=== PATIENT | female | born 1965 | race Caucasian/White ===

== ENCOUNTER 2017-09-10 09:47 | Outpatient (CLI) | payer OTHER, SELFPAY ==
[2017-09-10] VITALS (11 sets, daily range): BP systolic 115–141; BP diastolic 65–87; PULSE 61–70; RESP 16–18; TEMP 36.8; O2SAT 96–100
--- NOTE | 2017-09-10 09:49 | DI.RAD.S_ITS ---
PROCEDURE: PAIN C/T INTERLAMINAR INJECT INDICATIONS: 51 year-old female with cervical stenosis and radiculopathy. FINDINGS: Fluoroscopic spot filming was performed to verify placement of spinal needles at the posterior C6-C7 level(s), as labeled on the films. Appropriate location(s) of the needle tip(s) was confirmed by injection of iodinated contrast. IMPRESSION: Fluoroscopic guidance for C6-C7 epidural steroid injection. Dictated by: Conor Woodard M.D. on 09/10/2017 at 12:48 Approved by: Conor Woodard M.D. on 09/10/2017 at 12:49
--- NOTE | 2017-09-10 09:57 | PM.PROC.1 ---
Procedures Date/Time Date of procedure: 09/10/17 Time of procedure: 09:57 General Procedure description: PREOP DIAGNOSIS 1. CERVICAL STENOSIS, 2. CERVICAL HNP WITH UPPER EXTREMITY RADICULAR FEATURES, POST OP DIAGNOSIS 1. CERVICAL STENOSIS, 2. CERVICAL HNP WITH UPPER EXTREMITY RADICULAR FEATURES, PROCEDURES 1. FLUORSCOPICALLY GUIDED CONTRAST CONTROLLED INTERLAMINAR EPIDURAL STEROID INJECTION - C6/7 TL NEIL PHYSICIAN: DO BEVERLEY Golden is referred by Dr. Perdomo for treatment of Cervical HNP with Upper Extremity Paresthesias. FINDINGS Cervical Stenosis due to disc deterioration and nerve root irritation and nerve root irritation DESCRIPTION OF PROCEDURE Fluoroscopically guided, contrast-controlled C6/7 translaminar epidural steroid injection with conscious sedation. Following denial of allergy and review of potential side effects and complications, including, but not necessarily limited to, infection, allergic reaction, local tissue breakdown, temporary as well as permanent nerve injury, stroke, paralysis, and possible , the patient indicated that patient understood and agreed to proceed. An informed consent document was signed by the patient, witnessed by a nurse, and placed in the patient's chart. Additionally, other treatment options including modalities, medications, and physical therapy were reviewed with the patient. Per the patient request, IV conscious sedation was administered via 5mg of Versed and 50mcg of Fentanyl to patient comfort. The patient's vital signs were monitored throughout the procedure by both the nurse and the physician without significant fluctuation. The patient remained conversant throughout the procedure. In the prone position, following sterile prep and drape of the cervical region, the C6/7 translaminar space was identified fluoroscopically. The skin was anesthetized via a 25-gauge 1.5-inch needle with 1% lidocaine solution. At this point, a 25-gauge, 2.5-inch short bevel spinal needle was atraumatically introduced and advanced under fluoroscopic guidance into epidural space at the C6/7 translaminar space. Depth was confirmed on lateral view. Radiological data, including multiple fluoroscopic views of the cervical spine, reveal a spinal needle at the C6/7 translaminar space. Lateral views then show placement of the needle in the epidural space. Subsequent views show contrast material flowing superiorly and inferiorly in the epidural space. DSA fluoroscopy with live contrast injection, once again, confirmed no vascular or intrathecal uptake. At this point, using loss of resistance technique with saline and air, the epidural space was entered. Following negative aspiration, injection of approximately 1.5 cc of Isovue-200 with live fluoroscopy in the AP view confirmed epidural flow in the epidural space without vascular or intrathecal uptake observed. Subsequently, a test dose of 1 cc of 1% lidocaine solution was injected and patient was observed for two minutes without signs or symptoms of complications, including abdominal pain, shortness of breath, bilateral upper or lower extremity weakness, nausea and vomiting, prior to steroid injection. At this point, 3 cc or 30 mg of dexamethasone was then injected without incident. The patient was then transferred to the recovery area where they were observed for an appropriate period of time after the injection. The patient reported a VAS score of 6 prior to the procedure and a post-procedure VAS of 0. Total Fluoroscopy Time: 37.0 seconds Total Conscious Time: 24min POST OP INSTRUCTIONS The patient was provided a Pain Log to continue to record their response to the target-specific procedure prior to follow-up visit with the referring provider. Additionally, specific post-injection care instructions and a contact number to our office were provided if concerns arise regarding possible complications associated with the procedure are suspected. Hebert Foley, DO Complications: none
[2017-09-10] MEDS: MIDAZOLAM 5 MG/5 ML VIAL IV (11:02)
[2017-09-10] MEDS: fentaNYL 100 MCG/2 ML INJ 50 MCG IV (11:10)
[2017-09-10] MEDS: LIDOCAINE 1% 20 ML INJ 5 ML INJ (11:12)
[2017-09-10] MEDS: DEXAMETHASONE 10 MG/ML VIAL 30 MG INJ (11:12)
[2017-09-10] MEDS: IOPAMIDOL 15 ML VIAL 3 ML INJ (11:12)
== END 2017-09-10 12:29 | disposition home or self-care (01) ==
PROVIDERS: PCP Family Medicine; Visit Provider Physical Medicine & Rehabilitation
DX: M50.123 Cervical disc disorder at C6-C7 level with radiculopathy (principal); M48.02 Spinal stenosis, cervical region
CPT/HCPCS: 62321; 99152; J1100; J2250; J3010

== ENCOUNTER → 2017-11-26 11:17 | Outpatient (CLI) | payer OTHER, SELFPAY | PROVIDERS: PCP Internal Medicine; Visit Provider Internal Medicine | DX: R76.8 Other specified abnormal immunological findings in serum (principal) | CPT/HCPCS: 36415; 83516 ==

== ENCOUNTER → 2018-01-22 11:38 | Outpatient (CLI) | payer OTHER, SELFPAY ==
--- NOTE | 2018-01-22 | DI.MRI.S_ITS ---
PROCEDURE: MR LUMBAR SPINE WO CON INDICATIONS: URGE OF INCONTINENCE OF URINE/FULL INCONTINENCE TECHNIQUE: Noncontrast sagittal T1 spin echo and T2 fast echo, coronal T2, sagittal STIR, axial T1 and T2 fast spin echo through the lumbar spine. COMPARISON: [facility], CT, ABDOMEN WITH CONTRAST, 04/15/2017, 15:49. [facility], CR, L-SPINE 2-3 VIEWS, 03/03/2007, 9:57. FINDINGS: Image quality: Excellent. Alignment and Curvature: 5 lumbar type vertebral bodies are present by plain film. There is a transitional element at S1. Numbering system is as denoted on the montage panel. There is mild rightward curvature of the upper lumbar spine. Mild grade 1 retrolisthesis of L5 on S1 is present. Bone Marrow: Marrow is of normal overall signal. No acute vertebral body compression fractures. There is mild reactive signal within the endplates adjacent to the L3-L4 and L5-S1 intervertebral disc. Atypical hemangiomata at T11 and T12 are present. Spinal Cord: Conus medullaris terminates at the L1-L2 disc space level. Visualized cord demonstrates normal signal and size. Paraspinous Soft Tissues: No paravertebral masses. L1-L2: Mild facet hypertrophy. No significant canal, nor foraminal stenosis. L2-L3: Mild disc height loss and desiccation. Mild bilateral facet hypertrophy. Mild canal stenosis. No foraminal stenosis. L3-L4: Mild disc height loss and desiccation. Mild diffuse disc bulge. Mild bilateral facet hypertrophy. Mild epidural lipomatosis. Mild canal stenosis. No foraminal stenosis. L4-L5: Mild disc at loss and desiccation. Minimal diffuse disc bulge. Moderate bilateral facet and ligamentum flavum hypertrophy. Mild epidural lipomatosis. Mild canal stenosis. No foraminal stenosis. L5-S1: Moderate disc height loss and desiccation. Mild diffuse disc bulge. Mild bilateral facet and ligamentum flavum hypertrophy. Mild canal stenosis. Mild right greater than left foraminal stenosis. IMPRESSION: 1. Atypical numbering system as described above and as denoted on the montage panel. There is transitional anatomy at the lumbosacral junction. 2. Multilevel degenerative disc and facet disease, as well as ligamentum flavum hypertrophy and epidural lipomatosis, causing mild multilevel canal and foraminal stenoses as described above. Dictated by: Delmis Shukla M.D. on 01/22/2018 at 13:28 Approved by: Delmis Shukla M.D. on 01/22/2018 at 13:34
== END ==
PROVIDERS: Family Provider Physical Medicine & Rehabilitation; PCP Student in an Organized Health Care Education/Training Program; Visit Provider Psychiatry & Neurology Vascular Neurology
DX: N39.41 Urge incontinence (principal); M51.36 Other intervertebral disc degeneration, lumbar region; M51.37 Other intervertebral disc degeneration, lumbosacral region; E88.2 Lipomatosis, not elsewhere classified; M48.061 Spinal stenosis, lumbar region without neurogenic claudication; M48.07 Spinal stenosis, lumbosacral region
CPT/HCPCS: 72148

== ENCOUNTER → 2018-02-27 12:10 | Outpatient (CLI) | payer OTHER, SELFPAY ==
--- NOTE | 2018-02-27 12:10 | DI.MRI.S_ITS ---
PROCEDURE: MR CERVICAL SPINE WO CON INDICATIONS: Cervical spine pain. Headaches. Incontinence. Numbness to fingers and left foot TECHNIQUE: Noncontrast sagittal T1 spin echo and T2 fast spin echo, sagittal STIR, foraminal oblique sagittal T2 fast spin echo, and axial gradient echo or T2 fast spin echo through the cervical spine. COMPARISON: [facility], MR, C-SPINE WITHOUT CONTRAST, 07/28/2014, 14:15. [facility], MR, C-SPINE WITHOUT CONTRAST, 07/26/2016, 16:24. FINDINGS: Image quality: Diagnostic, with note made of motion artifact. Alignment and Curvature: There is straightening of the normal cervical lordosis. Bone Marrow: Marrow demonstrates normal overall signal. Spinal Cord: Visualized spinal cord has normal size and signal. No cerebellar tonsillar herniation. Paraspinous Soft Tissues: No paravertebral masses. Prevertebral soft tissues are normal in thickness. C2-C3: No significant abnormality is seen. C3-C4: Mild loss of disc height is seen. Loss of disc signal is seen. A mild degree of generalized disc osteophyte complex is seen. Mild to moderate facet hypertrophy is seen. There is moderate to severe left-sided and mild to moderate right-sided neural foraminal narrowing seen. Mild central canal narrowing is seen. The degree of left-sided neural foraminal narrowing appears slightly progressed compared to the prior. C4-C5: Mild loss of disc height is seen. Loss of disc signal is seen. Moderate disc osteophyte complex is seen, which is eccentric to the left, as on series 5 image 20. Mild to moderate facet hypertrophy is seen. There is moderate right-sided and moderate to severe left-sided neural foraminal narrowing seen. Moderate central canal narrowing is seen. The degree of central canal narrowing appears progressed compared to the prior. C5-C6: Moderate loss of disc height is seen. Loss of disc signal is seen. Moderate to prominent disc osteophyte complex is seen. Uncovertebral joint hypertrophy is seen at this level. Mild to moderate facet hypertrophy is seen. There is moderate to severe bilateral neural foraminal narrowing seen. Moderate to severe central canal narrowing is seen, with mass effect upon the ventral spinal cord, as on series 5 image 24. When comparison is made with the prior examination, these findings are similar. C6-C7: Moderate to severe loss of disc height and disc signal are seen. Moderate disc osteophyte complex is seen, which is eccentric to the left. There is focal left lateral recess disc osteophyte protrusion seen. There is moderate to severe left-sided and at least moderate right-sided neural foraminal narrowing seen. At least moderate central canal narrowing is seen at this level, with mild mass effect upon the ventral spinal cord. These imaging findings have progressed compared to the prior study. C7-T1: The disc height is relatively well-preserved. A mild degree of generalized disc osteophyte complex is seen. There is moderate left-sided and mild right-sided neural foraminal narrowing seen. No significant central canal narrowing is seen. No significant change from the prior. IMPRESSION: Multiple levels of cervical spine degenerative change are seen, which are overall mildly progressed compared to 2017. Dictated by: Norberto Lakhani M.D. on 02/27/2018 at 12:31 Approved by: Norberto Lakhani M.D. on 02/27/2018 at 12:41
== END ==
PROVIDERS: Family Provider Physical Medicine & Rehabilitation; PCP Student in an Organized Health Care Education/Training Program; Visit Provider Physical Medicine & Rehabilitation
DX: M47.812 Spondylosis without myelopathy or radiculopathy, cervical region (principal); M48.02 Spinal stenosis, cervical region; M54.2 Cervicalgia; R51 Headache; R32 Unspecified urinary incontinence; R20.0 Anesthesia of skin; G95.89 Other specified diseases of spinal cord
CPT/HCPCS: 72141

== ENCOUNTER 2018-04-14 08:00 | Outpatient (CLI) | payer OTHER, SELFPAY ==
[2018-04-14] VITALS (8 sets, daily range): BP systolic 105–133; BP diastolic 69–96; PULSE 72–79; RESP 16–21; TEMP 36.5; O2SAT 96–100
--- NOTE | 2018-04-14 08:02 | DI.RAD.S_ITS ---
PROCEDURE: PAIN C/T INTERLAMINAR INJECT INDICATIONS: SPINAL STENOSIS FINDINGS: Fluoroscopic spot filming was performed to verify placement of spinal needles at the C6-7 midline dorsal epidural level(s), as labeled on the films. Appropriate location(s) of the needle tip(s) was confirmed by injection of iodinated contrast. IMPRESSION: Successful interlaminar epidural needle tip localization for C6-7 epidural steroid injection. Dictated by: Renard Jesus M.D. on 04/14/2018 at 10:17 Approved by: Renard Jesus M.D. on 04/14/2018 at 10:17
[2018-04-14] MEDS: MIDAZOLAM 5 MG/5 ML VIAL IV (09:11)
[2018-04-14] MEDS: IOPAMIDOL 15 ML VIAL 3 ML INJ (09:19)
[2018-04-14] MEDS: DEXAMETHASONE 10 MG/ML VIAL 30 MG INJ (09:20)
[2018-04-14] MEDS: LIDOCAINE 1% 20 ML INJ 5 ML INJ (09:20)
--- NOTE | 2018-04-14 09:26 | CM.MNRNOTE ---
Pt tolerated procedure, awake through procedure, able to get off table with minimal assist. Transferred pt to pre procedure room via wheelchair to continued monitoring with Shavonne HARDEN.
--- NOTE | 2018-04-14 09:32 | PM.PROC.1 ---
Procedures Date/Time Date of procedure: 04/14/18 Time of procedure: 09:32 General Procedure description: PREOP DIAGNOSIS 1. CERVICAL STENOSIS, 2. CERVICAL HNP WITH UPPER EXTREMITY RADICULAR FEATURES, POST OP DIAGNOSIS 1. CERVICAL STENOSIS, 2. CERVICAL HNP WITH UPPER EXTREMITY RADICULAR FEATURES, PROCEDURES 1. FLUORSCOPICALLY GUIDED CONTRAST CONTROLLED INTERLAMINAR EPIDURAL STEROID INJECTION - C6/7 TL NEIL PHYSICIAN: Hebert Foley, DO INDICATIONS Raeann is referred by Dr. Bruner for treatment of Cervical Stenosis with Upper Extremity Paresthesias. FINDINGS Cervical Stenosis due to disc deterioration and nerve root irritation and nerve root irritation DESCRIPTION OF PROCEDURE Fluoroscopically guided, contrast-controlled C6/7 translaminar epidural steroid injection with conscious sedation. Following denial of allergy and review of potential side effects and complications, including, but not necessarily limited to, infection, allergic reaction, local tissue breakdown, temporary as well as permanent nerve injury, stroke, paralysis, and possible , the patient indicated that patient understood and agreed to proceed. An informed consent document was signed by the patient, witnessed by a nurse, and placed in the patient's chart. Additionally, other treatment options including modalities, medications, and physical therapy were reviewed with the patient. After review of previous anaesthesic history and IV conscious sedation the patient was deemed safe to proceed with todays procedure with IV conscious sedation as ASA class II designation. Safety time-out was performed to confirm patient ID, procedure to be performed and site of procedure. IV sedation was accomplished with a combination of 5mg of Versed administered by the RN after DO order, titrated to patient comfort during the course of the procedure while the patient remained responsive to all verbal commands. In the prone position, following sterile prep and drape of the cervical region, the C6/7 translaminar space was identified fluoroscopically. The skin was anesthetized via a 25-gauge 1.5-inch needle with 1% lidocaine solution. At this point, a 25-gauge, 2.5-inch short bevel spinal needle was atraumatically introduced and advanced under fluoroscopic guidance into epidural space at the C6/7 translaminar space. Depth was confirmed on lateral view. Radiological data, including multiple fluoroscopic views of the cervical spine, reveal a spinal needle at the C6/7 translaminar space. Lateral views then show placement of the needle in the epidural space. Subsequent views show contrast material flowing superiorly and inferiorly in the epidural space. DSA fluoroscopy with live contrast injection, once again, confirmed no vascular or intrathecal uptake. At this point, using loss of resistance technique with saline and air, the epidural space was entered. Following negative aspiration, injection of approximately 1.5 cc of Isovue-200 with live fluoroscopy in the AP view confirmed epidural flow in the epidural space without vascular or intrathecal uptake observed. Subsequently, a test dose of 1 cc of 1% lidocaine solution was injected and patient was observed for two minutes without signs or symptoms of complications, including abdominal pain, shortness of breath, bilateral upper or lower extremity weakness, nausea and vomiting, prior to steroid injection. At this point, 3 cc or 30 mg of dexamethasone was then injected without incident. The patient tolerated the procedure well without signs or symptoms of complications prior to being transferred to the recovery area for further monitoring, The patient was then transferred to the recovery area where they were observed for an appropriate period of time after the injection. The patient reported a VAS score of 6 prior to the procedure and a post-procedure VAS of 0. Total Fluoroscopy Time: 37.0 seconds Total Conscious Time: 24min POST OP INSTRUCTIONS The patient was provided a Pain Log to continue to record their response to the target-specific procedure prior to follow-up visit with the referring provider. Additionally, specific post-injection care instructions and a contact number to our office were provided if concerns arise regarding possible complications associated with the procedure are suspected. Hebert Foley DO Complications: none
--- NOTE | 2018-04-14 09:35 | PC.NURSE ---
ACCEPTED CARE OF PT IN POST PROC AREA. PT IN STABLE CONDITION
--- NOTE | 2018-04-15 12:46 | PC.NURSE ---
Follow up call made, mailbox full unable to leave message.
== END 2018-04-14 10:12 | disposition home or self-care (01) ==
LOC: RAD 08:02
PROVIDERS: PCP Student in an Organized Health Care Education/Training Program; Visit Provider Physical Medicine & Rehabilitation
DX: M50.123 Cervical disc disorder at C6-C7 level with radiculopathy (principal); M48.02 Spinal stenosis, cervical region
CPT/HCPCS: 62321; 99152; J1100; J2250

== ENCOUNTER → 2018-05-07 09:36 | Outpatient (CLI) | payer OTHER, SELFPAY ==
[2018-05-07 10:55] LABS: Add Manual Diff / Slide Review NO; Basophils Absolute Auto 100 /uL (0-100); Basophils Percent Auto 0.7 % (0-2); Eosinophils Absolute Auto 400 /uL (0-450); Eosinophils Percent Auto 4.9 % (2-4); Hematocrit 42.3 % (36-46); Hemoglobin 14.2 g/dL (12.0-16.0); Lymphocytes Absolute Auto 1200 /uL (1100-4500); Lymphocytes Percent Auto 15.5 % (25-40); Mean Corpuscular HGB Conc 33.6 % (30-36); Mean Corpuscular Hemoglobin 31.5 PG (26-34); Mean Corpuscular Volume 93.7 fL (80-100); Monocytes Absolute Auto 600 /uL (0-900); Monocytes Percent Auto 7.7 % (3-14); Neutrophils Absolute Auto 5400 /uL (1500-7000); Neutrophils Percent Auto 71.2 % (50-75); Platelet Count 262 X10^3/uL (150-400); Red Blood Cell Count 4.51 X10^6/uL (4.0-5.2); Red Cell Distribution Width 14.7 % (11.6-14.8); White Blood Cell Count 7.6 X10^3/uL (4.5-11.0)
== END ==
PROVIDERS: PCP Student in an Organized Health Care Education/Training Program; Visit Provider Orthopaedic Surgery
DX: Z01.818 Encounter for other preprocedural examination (principal); M48.02 Spinal stenosis, cervical region; M50.30 Other cervical disc degeneration, unspecified cervical region
CPT/HCPCS: 36415; 85025; 93005

== ENCOUNTER 2018-05-20 08:32 | Observation (INO) | payer OTHER, SELFPAY ==
[2018-05-13 09:21] VITALS: BMI 30.9
[2018-05-19] VITALS (17 sets, daily range): BP systolic 109–147; BP diastolic 59–90; PULSE 60–91; RESP 12–22; TEMP 36.3–37.1; O2SAT 90–99; BMI 30.9
[2018-05-19] MEDS: LACTATED RINGERS 1,000 ML 42 ML IV (07:11)
--- NOTE | 2018-05-19 07:23 | PM.PREOP ---
Pre-operative Note Interval Note History & Physical reviewed/Exam performed by Physician: Yes Changes to H&P: No
[2018-05-19] MEDS: CEFAZOLIN 2 GM/100 ML FROZ.PIGGY IV ×3 (07:39→23:56)
--- NOTE | 2018-05-19 08:18 | SUR.OPER ---
Supine, head on gel donut. Arms padded with gel pads, tucked at sides, towel roll under shoulders. Safety belt at thigh. Legs uncrossed. Pillow under knees
[2018-05-19] MEDS: THROMBIN (BOVINE) 5,000 UNIT VIAL 5000 UNIT TOP (08:38)
[2018-05-19] MEDS: SODIUM CHLORIDE 0.9% 1,000 ML, GENTAMICIN 80 MG IRR (08:39)
[2018-05-19] MEDS: BUPIVACAINE 0.25% W/ EPI VIAL 50 ML INJ (09:01)
--- NOTE | 2018-05-19 09:11 | PM.OP.1 ---
Operative Date/Time/Diagnoses Date of procedure: 05/19/18 Time of procedure: 09:11 Pre-op diagnosis: Cervical disc herniation with radiculopathy Post-op diagnosis: same Procedure & Clinicians Procedure: C5-6 and C6-7 anterior cervical diskectomy and artificial disc replacement Use of microscope Same procedure as scheduled: Yes Indications: [age] year old female with intractable pain from disc herniation. They had failed conservative management and requested operative intervention. Risks and benefits of surgery were discussed and appropriate consents were obtained. Surgeon: Nagi Solis Cafeteria Supervisor: Zahra Bradford Anesthesia Type: General Operative Notes Findings: None Closure Type: primary Specimen(s): none sent Prosthetic devices, grafts, tissues, transplants, or devices: Monse Mobi-C Estimated Blood Loss (mL): 5 Procedure in detail: Patient was brought to the operating room and intubated on the table. A time-out was performed. Preoperative antibiotics were given. The neck was prepped and draped in the standard sterile fashion. Using a skin fold, we made a 3 cm oblique incision on the left side. We used Bovie to go through the platysma and then did a standard anterolateral blunt dissection down to the precervical fascia. Fascia was nicked and elevated up. A marker was placed and x-ray was taken for localization. We then subperiosteally elevated up the longus colli muscles. Self-retaining retractors were placed. [place] pins were placed under x-ray guidance to be parallel to the endplates. We then brought in the microscope. A scalpel used to perform an annulotomy. We then used a combination of pituitaries and curettes and Kerrison to perform a complete anterior diskectomy at C6-7. We took down the PLL and used Kerrison to remove any posterior disc material and osteophytes. At the end we could from the nerve hook cephalad caudally and out the foramen and everything was opened. We distracted open with the parallel receipt and report clerk. We then used the horseshoes for sizing. We then used the trials. We then inserted a 13 mm x 17 mm x 5 mm size Mobi-C artificial disc replacement under fluoroscopic guidance for positioning. The traction was released and x-ray was checked again. The self-retaining retractors and [place] pins were removed and x-rays taken. We then moved up to the C5-6 disc space and placed a [place] pin. Again a complete diskectomy was performed including taking down the PLL. Posterior osteophytes and disc material were removed. In the end a nerve hook could be run cephalad, caudally, and out the foramen at everything and then opened. We trialed and then placed a 13 mm x 15 mm x 5 mm size Mobi-C artificial disc replacement. This was checked under x-ray and then the [place] pins were compressed. We removed our retractors and took our final x-rays. The wound was irrigated. There was no bleeding. The carotid was beating nicely. The platysma was closed. The superficial was closed. The skin was closed. A sterile dressing was placed. They were then extubated and brought to recovery room with no complications. Complications: none Condition: stable Disposition: PACU Plan for aftercare: Overnight admission. Probable discharge home tomorrow.
[2018-05-19] MEDS: HYDROMORPHONE 2 MG INJ 0.5 MG IV ×8 (09:22→10:11)
--- NOTE | 2018-05-19 09:30 | DI.RAD.S_ITS ---
PROCEDURE: XR CERVICAL SPINE 2V OR 3V INDICATIONS: C5-6, C6-7 ACDF TECHNIQUE: 2 view(s) of the cervical spine were acquired. COMPARISON: None. FINDINGS: 2 spot fluoroscopic intraoperative views demonstrating C5-C6 and C6-7 prosthetic disc placement. There is expected intraoperative alignment. Hardware appears intact. Mild C4-C5 disc degeneration. Dictated by: Mario Davenport M.D. on 05/19/2018 at 10:45 Approved by: Mario Davenport M.D. on 05/19/2018 at 10:59
[2018-05-19] MEDS: fentaNYL 100 MCG/2 ML INJ IV ×2 (09:45→09:50)
--- NOTE | 2018-05-19 10:49 | SUR.PHASEI ---
1045, addendum to PACU note; pt. in process on transferring to the acute care floor, on the elevator noted 'some' blood that had absorbed onto the right side of the neck dressing. Marked the area with a sharpy and reported this to the RN Keri (orienting) receiving this pt. Reese HARDEN and Keri stated they were fine at this time of 'handoff', and I left the floor.
--- NOTE | 2018-05-19 12:21 | PC.NURSE ---
Addendum entered and electronically signed by Keri Cisneros R.N. 05/19/18 13:14: Original Note: Addendum entered and electronically signed by Keri Cisneros R.N. 05/19/18 12:26: 1100- Admission complete; slight drainage present on neck dressing, soft neck collar in place. Pt states she has 8/10 pain, will wait for IV meds from downstairs to work. 2L O2 w/ sats in high 90's. LR hung and running @ 125 ml/hr. 1220- Breakthru pain; medicated w/ Melvin. Swalowing pussing & V8 juice okay at this time. Original Note: 1035- Pt arrived to unit from PACU. Post op C5-C7 anterior dissection & artificial disc replacement.
[2018-05-19] MEDS: OXYCODONE/ACETAMINOPHEN 5/325 TABLET 1 TAB PO (12:23)
[2018-05-19] MEDS: LACTATED RINGERS 1,000 ML 125 ML IV (12:24)
[2018-05-19] MEDS: HYDROMORPHONE 0.5 MG INJ IV (16:02)
--- NOTE | 2018-05-19 16:15 | PT.IIE ---
Current Diagnoses Spinal stenosis, cervical region (05/19/18) Other cervical disc degeneration, unspecified cervical region (05/19/18) Surgery Performed Operation Date: 05/19/18 07:45 Actual Procedures p C56 & C67 Anterior Discectomy & Artificial disc replacement - Nagi Solis MD Surgical History (Last Reviewed 05/14/18 @ 10:10 by Hebert Foley DO) Hx of cholecystectomy (Acute ~1998) Normal colonoscopy (Resolved 2014) Plantar fasciitis (Resolved 2001) Plantar fasciitis (Resolved 2004) Status post cholecystectomy (Resolved 1998) Status post loop electrosurgical excision procedure (LEEP) of cervix (Resolved 1995) Status post tubal ligation (Resolved 1997) Medical History (Last Reviewed 05/14/18 @ 10:10 by Hebert Foley DO) Cervical dysplasia (Acute) Anemia (Chronic 1999) Anxiety (Chronic 1999) Chronic headaches (Chronic) Depression (Chronic 1989) Foot pain (Chronic 2000) Heavy menstrual period (Chronic) History of use of contraceptive intrauterine device (IUD) (Chronic 07/2010) Hypothyroidism (Chronic ~1989) Migraine (Chronic) Painful menstrual periods (Chronic 1989) Restless legs syndrome (RLS) (Chronic 2007) Shoulder pain (Chronic 2013) Abnormal Pap smear of cervix (Resolved 1994) Chicken pox (Resolved 1977) Chlamydia (Resolved 1983) Diverticular disease (Resolved 2014) Fractures (Resolved 1981) Hemorrhoids (Resolved 1989) Physical Therapy Inpatient Evaluation/Re-Eval M1 PT/OT-IP Prior Functional Status Start: 05/19/18 16:41 Freq: NEEDED Status: Active Protocol: Document 05/19/18 16:15 AB (Rec: 05/19/18 16:55 AB [id number]) Medical Review Prior Functional Status Medical History Reviewed Yes Communication able to make needs known Mobility and Gait pt stated that she is independent with all mobilities and ambulation without AD Social History Household Members spouse Living Arrangements House Number of Floors (Floors) One Floor Number of Stairs To Enter/Railing? 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 Additional Social History Comment works at the [employer] for [employer] spouse stated that he can get a FWW for pt to use M2 PT-IP Current Condition Start: 05/19/18 16:41 Freq: NEEDED Status: Active Protocol: Document 05/19/18 16:15 AB (Rec: 05/19/18 16:55 AB [id number]) Physical Therapy Current Condition Current Condition Evaluation Date 05/19/18 Treatment Diagnosis s/p C5-6, C6-7 discectomy/ replacement; difficulty in walking Onset Date 05/19/18 Precautions Cervical Spine Precautions Soft Collar for Comfort No Heavy Lifting Log Roll M3 PT-IP Subjective Start: 05/19/18 16:41 Freq: NEEDED Status: Active Protocol: Document 05/19/18 16:15 AB (Rec: 05/19/18 16:55 AB [id number]) Subjective Physical Therapy Visit Type Type Initial Evaluation Visit Start Time 16:15 Visit Stop Time 16:40 Total Visit Minutes 25 Number of VENDING STAND SUPERVISOR Visits 0 Physical Therapy Visit Comments Patient Comments c/o a lot of pain and getting a migraine but agreed to try to get up Therapy Pain Assessment Pain When Pain Assessed At Rest Pain Present Pain Present Pain Reported Location Anterior neck Intensity 9 Scale Used Numeric (1 - 10) Pain Management Techniques Re-positioning Timing of Activity with Medications M4 PT-IP Mobility and Gait Start: 05/19/18 16:41 Freq: NEEDED Status: Active Protocol: Document 05/19/18 16:15 AB (Rec: 05/19/18 16:55 AB [id number]) PT-Bed Mobility Assessment Rolling Type of Rolling Log Rolling Level of Assist Contact Guard Assistance Supine to Sit Supine to Sit Minimal Assistance Sit to Supine Sit to Supine Contact Guard Assistance PT-Transfer Assessment Sit to and From Stand Sit to and from Stand Minimal Assistance 1 Person Assistance Use of Upper Extremities Equipment Transfer Assistive Device Gait Belt Front Wheeled Walker Orthotic/Prosthetic Devices or Brace: No Comments Mobility Comments pt c/o increase pain and getting a migraine. seems lethargic but able to respond to questions and follow directions. pt completed supine to sit min A and cues. pt was able to sit on EOB SBA . c/o feeling fuzzy. BP checked: 151/101 [place] 90. assisted pt to position in bed before going back. completed sit to stand min A and cues and was able to take side steps towards HOB using FWW min A. pt completed log roll sit to supine CGA and cues. required max A for positioning in bed. call light and table placed within reach. nurse is aware of pt's BP. BP at end of tx session: 144/88 [place] 77. Gait Assessment Comments Gait Comments able to take side steps towards HOB using FWW min A PT-Balance Assessment Sitting Balance and Reactions Static Sitting Balance Ability Good Dynamic Sitting Balance Ability Good Standing Balance and Reactions Static Standing Balance Ability Fair Dynamic Standing Balance Ability Fair Device Used FWW M5 PT-IP Objective Assessments Start: 05/19/18 16:41 Freq: NEEDED Status: Active Protocol: Document 05/19/18 16:15 AB (Rec: 05/19/18 16:55 AB [id number]) Orientation Orientation/Cognition Level of Alertness Lethargic Orientation Name Birthday Place Situation Gross Range of Motion Lower Extremity ROM Assessment Within Functional Limits Strength Lower Extremity Strength Assessment Within Functional Limits Sensation Assessment Sensation Gross Sensation WNL Muscle Tone Muscle Tone WNL Yes M6 PT-IP Treatment Start: 05/19/18 16:41 Freq: NEEDED Status: Active Protocol: Document 05/19/18 16:15 AB (Rec: 05/19/18 16:55 AB [id number]) Physical Therapy Treatment Education Education Provided Precautions Post-Op Packet Safety M7 PT-IP Assessment and Plan Start: 05/19/18 16:41 Freq: NEEDED Status: Active Protocol: Document 05/19/18 16:15 AB (Rec: 05/19/18 16:55 AB [id number]) PT Summary Assessment and Plan Potential Rehabilitation Potential Fair Status of Condition at Evaluation Evolving Summary Impairments Pain ROM Strength Balance Bed Mobility Transfers Gait Activity Tolerance Assessment Summary pt unable to tolerate much activity today with c/o 9/10 pain and having a migraine. will continue to assess progress. pt plans to go home and spouse will assist pt but is only off until tomorrow to assist pt. pt stated that she has friends that can assist her if needed. Goals Bed Mobility Goal Standby Assistance Transfer Goal Standby Assistance Front Wheeled Walker Gait Goal Standby Assistance Front Wheel Walker Gait Distance 150 Other Goals improve ambulation using least restrictive device/without AD SBA up to 200 ft be able to complete up/down 2 steps with L rail ascending SBA Days to Meet Goals 3 Frequency of Treatment Frequency Of Treatment Twice a Day Treatment Plan Physical Therapy Treatment Plan Bed Mobility Training Transfer Training Gait Training Therapeutic Exercise Balance Retraining Post Op Education Discharge Planning Hot or Cold Pack Neuromuscular Re-ed Coordination Retraining Manual Therapy Other Recommendations and Next Treatment bed mobility, transfers, Focus ambulation Recommendations To Nursing Amount of Assist Needed 1 Person Assist Discharge Recommendations PT Discharge Recommendations Home with Assistance
[2018-05-19] MEDS: BUTALB/APAP/CAFFEINE 50/325/40 TABLET 1 EACH PO (17:20)
[2018-05-19] MEDS: OXYCODONE IR 5 MG TABLET 10 MG PO ×2 (18:37→23:18)
--- NOTE | 2018-05-19 18:39 | PC.NURSE ---
Addendum entered by Emily Lenz R.N. 05/19/18 21:59: Pt states she is feeling much better. Stable post op course. Soft collar in place. SCD on. IVF continue as per orders Call light w/in anjum, calls appropriately for needs. Continue w/plan of care. Original Note: Pt w/pain issues. Surgical neck 11/07; med w/Dilaudid IV w/no relief. Pt stated beginning of migraine, unable to tolerate noise or lights. Order received for fioricet, med @ 1730 w/some relief. LR @ 125cc/hr via pump infusing into the right hand w/o incidence. Lungs clear, SpO2 97% Soft collar in place, anterior dsg w/small shadow drainage. Call light w/in reach, call appropriately for needs.
[2018-05-19] MEDS: BUSPIRONE 15 MG TABLET 30 MG PO (20:54)
[2018-05-19] MEDS: MIRTAZAPINE 15 MG TABLET PO (20:55)
[2018-05-19] MEDS: GABAPENTIN 300 MG CAPSULE PO (20:55)
[2018-05-19] MEDS: DOCUSATE 100 MG CAPSULE PO (20:55)
[2018-05-19] MEDS: SENNOSIDES 8.6 MG TABLET 17.2 MG PO (20:56)
[2018-05-19] MEDS: AMITRIPTYLINE 10 MG TABLET PO (21:00)
[2018-05-19] MEDS: hydrOXYzine pamoate 25 MG CAPSULE PO (23:53)
[2018-05-20] VITALS (8 sets, daily range): BP systolic 120–154; BP diastolic 78–97; PULSE 68–96; RESP 16–20; TEMP 36.3–37; O2SAT 92–98
[2018-05-20] MEDS: BUTALB/APAP/CAFFEINE 50/325/40 TABLET 1 EACH PO ×3 (01:51→16:37)
[2018-05-20] MEDS: HYDROMORPHONE 0.5 MG INJ IV ×2 (01:51→04:10)
--- NOTE | 2018-05-20 02:04 | PC.NURSE ---
Addendum entered by Janine Lopez R.N. 05/20/18 06:15: Guaze dressing with increased bloody drainage. Shadowing at this time. Original Note: Addendum entered by Janine Lopez R.N. 05/20/18 06:13: Patient doing better but states that oxycodone is not helping the pain. Patient has required doses of IV dilaudid for breakthrough pain control. Patient resting quietly at this time. NAD, respirations even and unlabored. Ice pack helpful for site pain. Patient has not wanted to wear soft-collar this shift in bed. Original Note: NOC SHIFT/Complaint of difficulty/pain with swallowing/bloody drainage on dressing. Noted new bloody drainage on anterior neck dressing. Drainage marked at 2345 (05/19) by this RN, at 0200 (05/20) no new drainage visualized. 0200 Patient complaining of feeling that neck is swelling and swallowing is more difficult. VSS, patient remains 96% on room air, respirations unlabored and even. Patient states that pain is 8/10 and is very tearful and restless. Patient medicated per eMar with 0.5 dilaudid iv. Patient asked for soft collar to be removed at this time and new ice pack placed on patient dressing/neck. Dr. Yanes notified by this RN at 0205 of new patient complaint and no new orders received at that time. Will continue to monitor. Patient now resting quietly.
[2018-05-20] MEDS: OXYCODONE IR 5 MG TABLET 10 MG PO (02:57)
[2018-05-20] MEDS: hydrOXYzine pamoate 25 MG CAPSULE PO ×2 (05:03→11:20)
[2018-05-20] MEDS: LACTATED RINGERS 1,000 ML 125 ML IV (05:03)
[2018-05-20] MEDS: LEVOTHYROXINE 75 MCG TABLET PO (06:11)
[2018-05-20] MEDS: LEVOTHYROXINE 100 MCG TABLET PO (06:11)
--- NOTE | 2018-05-20 07:53 | PM.PNPO.1 ---
Subjective Date Patient Seen: 05/20/18 Time Patient Seen: 07:53 Interval history: Very rough night. A lot of pain in the neck. Arms are fine. Oral Percocet not enough, but the IV Dilaudid has been more helpful. Exam Vital Signs (past 8 hours): - 05/20/18 02:07 05/20/18 02:59 Temperature 98.5 F 98.1 F Pulse Rate 84 68 Respiratory Rate 20 18 Blood Pressure 146/97 H 154/89 H Pulse Oximetry 95 96 Oxygen Delivery Method Room Air Oxygen Flow Rate 2 Const Orientation: alert and oriented x3 Back/Spine/Pelvis Other: 5/5 motor both upper extremities. Mild drainage on dressing Assessment & Plan Post-op Postoperative Procedures Operation Date: 05/19/18 07:45 Actual Procedures Side Surgeon p C56 & C67 Anterior Discectomy & Artificial disc replacement Nagi Solis MD I am going to switch her over to oral Dilaudid to see if this helps. If she is stable she could be discharged home this afternoon. Quality VTE Deep Vein Thrombosis/Pulmonary Embolism Present on Admission: No
[2018-05-20] MEDS: DOCUSATE 100 MG CAPSULE PO ×2 (07:57→20:15)
[2018-05-20] MEDS: BUSPIRONE 15 MG TABLET 30 MG PO ×2 (07:57→20:13)
[2018-05-20] MEDS: SERTRALINE 50 MG TABLET 200 MG PO (07:57)
[2018-05-20] MEDS: HYDROMORPHONE 2 MG TABLET 4 MG PO ×2 (08:00→10:37)
--- NOTE | 2018-05-20 10:00 | CM.IDA ---
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 No Advance Directives on File No History Provided By Patient Prior Living Arrangements House Household Members spouse Type of transporation used prior to Drives own vehicle admit Independent with ADL's Yes: Works on [employer] [place] Is patient alert and oriented? Yes Barriers to Discharge No Comment Pt is POD#1 from Spinal Surgery w/Dr Solis. Payer: [employer]/ [employer]. Reviewed chart. Initial PT assessment indicates pt will likely be able to DC back home w/spouse when medically cleared. Pt has had some pain management issues post operatively. Pt would like to go home. 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 P: DC home is expected, ARCHITECTURAL RENDERER following closely in case DC needs arise. AMISH Mandujano Discharge Plan Home Transportation Arrangement Family Referrals Initiated None needed Additional Comment No referrals needed at this time. Following closely. Review Status In Process
--- NOTE | 2018-05-20 10:29 | OT.IP.EVAL ---
Current Diagnoses Spinal stenosis, cervical region (05/19/18) Other cervical disc degeneration, unspecified cervical region (05/19/18) Surgery Performed Operation Date: 05/19/18 07:45 Actual Procedures p C56 & C67 Anterior Discectomy & Artificial disc replacement - Nagi Solis MD Past Medical History (Last Reviewed 05/14/18 @ 10:10 by Hebert Foley DO) Cervical dysplasia (Acute) Anemia (Chronic 1999) Anxiety (Chronic 1999) Chronic headaches (Chronic) Depression (Chronic 1989) Foot pain (Chronic 2000) Heavy menstrual period (Chronic) History of use of contraceptive intrauterine device (IUD) (Chronic 07/2010) Hypothyroidism (Chronic ~1989) Migraine (Chronic) Painful menstrual periods (Chronic 1989) Restless legs syndrome (RLS) (Chronic 2007) Shoulder pain (Chronic 2013) Abnormal Pap smear of cervix (Resolved 1994) Chicken pox (Resolved 1977) Chlamydia (Resolved 1983) Diverticular disease (Resolved 2014) Fractures (Resolved 1981) Hemorrhoids (Resolved 1989) Surgical History (Last Reviewed 05/14/18 @ 10:10 by Hebert Foley DO) Hx of cholecystectomy (Acute ~1998) Normal colonoscopy (Resolved 2014) Plantar fasciitis (Resolved 2001) Plantar fasciitis (Resolved 2004) Status post cholecystectomy (Resolved 1998) Status post loop electrosurgical excision procedure (LEEP) of cervix (Resolved 1995) Status post tubal ligation (Resolved 1997) Occupational Therapy Inpatient Evaluation/Re-Eval M1 PT/OT-IP Prior Functional Status Start: 05/19/18 16:41 Freq: NEEDED Status: Active Protocol: Document 05/20/18 10:29 PJM (Rec: 05/20/18 10:58 PJM [id number]) Medical Review Prior Functional Status Medical History Reviewed Yes Diet/Fluid Consistency Regular Communication WNL Mobility and Gait Pt states she is independent with all mobilities and ambulation without AD. Activities of Daily Living and IADL's Pt states she is independent with all self care, IADLS but limited by neck pain. 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 Social History Household Members spouse Living Arrangements House Number of Floors (Floors) One Floor Number of Stairs To Enter/Railing? 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 M2 OT-IP Current Condition Start: 05/20/18 10:34 Freq: Status: Active Protocol: Document 05/20/18 10:29 PJM (Rec: 05/20/18 10:58 PJM [id number]) Occupational Therapy Current Condition Current Condition Evaluation Date 05/20/18 Treatment Diagnosis decr'd self care, mobility s/p C5-6, C6-7 ant diskectomy w/artificial disc replacement Diagnosis Onset Date 05/19/18 Post Operative Precautions Cervical Spine Precautions Soft Collar for Comfort No Heavy Lifting Log Roll M3 OT- IP Subjective and Pain Start: 05/20/18 10:34 Freq: Status: Active Protocol: Document 05/20/18 10:29 PJM (Rec: 05/20/18 10:58 PJM [id number]) OT- Subjective Occupational Therapy Visit Type Type Initial Evaluation Visit Start Time 10:00 Visit Stop Time 10:29 Total Visit Minutes 29 Occupational Therapy Visit Comments Patient Comments My neck pain then turns into a migraine. Patient/Caregiver Goals to go home and have less pain during daily tasks so she can return to work OT Pain Assessment Pain When Pain Assessed After Treatment Pain Present Pain Present Pain Reported Location Anterior neck Intensity 7 Scale Used Numeric (1 - 10) Description Aching Acute M4 OT- IP ADL's Start: 05/20/18 10:34 Freq: Status: Active Protocol: Document 05/20/18 10:29 PJM (Rec: 05/20/18 10:58 PJM [id number]) OT [id number] General Evaluation Diet Level for Self-Feeding liquids and soft foods Self-Feeding Ability Independent Comments OT Self-Feeding Comments oral intake limited by throat pain OT ADL-Grooming General Evaluation Grooming Ability Independent Comments OT Grooming Comments provided education re: body mechanics while standing at the sink OT ADL-Oral Care General Eval Oral Care Ability Independent Areas of Assistance Brushing Teeth Devices Oral Care Devices Toothbrush Comments Oral Care Comments provided education re: body mechanics and pt verbalizes and demo's understanding OT ADL-Dressing General Eval Upper Body Dressing Ability Standby Assistance Lower Body Dressing Ability Standby Assistance Areas Needing Assistance Retrieving/Set-up of Clothing Comments OT Dressing Comments provided education re: body mechanics OT ADL-Toileting General Evaluation Toileting Ability Independent Areas Needing Assistance Perform Perineal Hygiene OT ADL-Bathing Bathing Type Bathing Type Shower General Evaluation Bathing Ability Standby Assistance Devices Bathing Equipment Hand Held Shower Sprayer Comments OT Bathing Comments provided education re: methods to keep incision dry and pt plans to use dry shampoo and use hand held shower hose from shoulders down until able to get incision wet; can assist PRN at home M5 OT- IP IADL's Start: 05/20/18 10:34 Freq: Status: Active Protocol: Document 05/20/18 10:29 PJM (Rec: 05/20/18 10:58 PJM [id number]) OT-Instrumental Activities of Daily Living Deficits IADL Deficits Identified Deficits Home Safety Awareness Awareness of Need for Assistance at Home Good Awareness Ability to Problem Solve Emergency Able to Problem Solve Situations Medication Management Medication Management No Deficits Identified Money Management Money Management No Deficits Identified Meal Preparation Meal Preparation Caregiver Provides Assist Meal Preparation Comments can assist PRN until pt able Driving Driving Caregiver Provides Assist Driving Comments and friends can assist PRN until pt able M6 OT- IP Functional Cognition Start: 05/20/18 10:34 Freq: Status: Active Protocol: Document 05/20/18 10:29 PJM (Rec: 05/20/18 10:58 PJM [id number]) Cognitive Factors Limiting Selfcare Function Cognitive Ability Level of Alertness Alert Patient Orientation Name Age Birthday Month Date Year Day of Week Place Situation Attention Span Ability Capable of Focused Attention Ability to Follow Commands Able to Follow One Step Commands Memory Description No Deficits Noted Safety Awareness No Deficits Noted Executive Function Ability No Deficits Noted Cognitive Comments Cognitive Assessment Comments Pt alert and oriented but tends to keep eyes closed due to headache. OT- Vision and Hearing OT- Hearing Assessment OT- Hearing Assessment WFL OT- Vision Assessment Visual Acuity WFL M7 OT- IP Mobility and Balance Start: 05/20/18 10:34 Freq: Status: Active Protocol: Document 05/20/18 10:29 PJM (Rec: 05/20/18 10:58 PJM [id number]) OT- Bed Mobility Assessment Rolling Type of Rolling Log Rolling Level of Assistance Independent Supine to Sit Supine to Sit Assist Standby Assistance Head of Bed Elevated Sit to Supine Sit to Supine Assist Standby Assistance Head of Bed Elevated Scooting Scooting to Edge of Bed Independent OT-Transfer Assessment Sit to and From Stand Sit to and from Stand Standby Assistance Transfers Transfer Ability Independent Technique Transfer Destination Bed Toilet Transfer Technique Stand Step Pivot Devices Transfer Assistive Devices Gait Belt Front Wheeled Walker Comments Mobility Comments Pt SBA to independent with FWW this session. OT- Gait Assessment Gait Gait Assistance Required: Standby Assistance Distance (Feet) 35 Assistive Devices Assistive Device Gait Belt Front Wheeled Walker Comments Gait Ability Comments no LOB noted OT- Balance Assessment Sitting Balance and Reactions Static Sitting Balance Ability Good Dynamic Sitting Balance Ability Good Standing Balance and Reactions Static Standing Balance Ability Good Dynamic Standing Balance Ability Good Comments Other Balance Tests/Deviations/Treatment during toileting and grooming : at sink M8 OT- IP Objective Assessments Start: 05/20/18 10:34 Freq: Status: Active Protocol: Document 05/20/18 10:29 PJM (Rec: 05/20/18 10:58 PJM [id number]) OT Gross Range of Motion Upper Extremity Range of Motion Assessment Within Functional Limits ROM Impairments did not assess end range at shoulders due to recent C spine surgery OT Strength Upper Extremity Strength Assessment Within Functional Limits Hand Entry Operator Strength Hand Dominance Right Comments Strength Comments pt reports decreased R hand strength due to thumb MC arthritis OT- Coordination Assessment Comments Coordination Comments BUE WFL OT-Muscle Tone Assessment Muscle Tone WNL Yes OT Sensation Assessment Comments Summary Comments Pt reports intermittent numbness prior to surgery in ring and little fingers of B hands and down posterior L leg . She also reports intermittent feeling of heaviness in BLE's Edema Edema Absent M9 OT- IP Assessment and Plan Start: 05/20/18 10:34 Freq: Status: Active Protocol: Document 05/20/18 10:29 PJM (Rec: 05/20/18 10:58 PJM [id number]) OT Summary Assessment and Plan Potential Rehabilitation Potential Good Analytic Complexity at Evaluation Low Summary OT Impairments Pain Progress Towards Goals Safe For Discharge Goals Met Assessment Summary Low complexity OT assessment completed with emphasis on C spine precautions during self care tasks. Pt educated re: C spine precautions, adapted ADL techniques for grooming, dressing, and bathing to keep C-spine incision dry. Pt moving well with FWW in room this session. Today's P.T. tx still pending to determine if pt will need FWW at home. Pt's primary limitation at this time is decreased pain control with improving migraine per pt. All OT education completed. Anticipate pt will d/c home later today with assist from working if medically stable (pain controlled) and clears P.T. Frequency of Treatment Frequency Of Treatment Discharge Discharge Recommendations OT Discharge Recommendations Home with Assistance
--- NOTE | 2018-05-20 11:20 | PT.IPTN ---
Current Diagnoses Spinal stenosis, cervical region (05/19/18) Other cervical disc degeneration, unspecified cervical region (05/19/18) Surgery Performed Operation Date: 05/19/18 07:45 Actual Procedures p C56 & C67 Anterior Discectomy & Artificial disc replacement - Nagi Solis MD Physical Therapy Treatment Note M2 PT-IP Current Condition Start: 05/19/18 16:41 Freq: NEEDED Status: Active Protocol: Document 05/19/18 16:15 AB (Rec: 05/19/18 16:55 AB [id number]) Physical Therapy Current Condition Current Condition Evaluation Date 05/19/18 Treatment Diagnosis s/p C5-6, C6-7 discectomy/ replacement; difficulty in walking Onset Date 05/19/18 Precautions Cervical Spine Precautions Soft Collar for Comfort No Heavy Lifting Log Roll M3 PT-IP Subjective Start: 05/19/18 16:41 Freq: NEEDED Status: Active Protocol: Document 05/20/18 11:20 GGD (Rec: 05/20/18 11:34 GGD [email or web address]) Subjective Physical Therapy Visit Type Type Treatment Note Visit Start Time 10:50 Visit Stop Time 11:15 Total Visit Minutes 25 Number of KILN SETTER Visits 1 Physical Therapy Visit Comments Patient Comments Pt willing to work with therapy, but C/O a migtaine. Therapy Pain Assessment Pain When Pain Assessed At Rest Pain Present Pain Present Pain Reported Location Anterior neck Intensity 8 Scale Used Numeric (1 - 10) M4 PT-IP Mobility and Gait Start: 05/19/18 16:41 Freq: NEEDED Status: Active Protocol: Document 05/20/18 11:20 GGD (Rec: 05/20/18 11:34 GGD [email or web address]) PT-Bed Mobility Assessment Rolling Type of Rolling Log Rolling Level of Assist Contact Guard Assistance Supine to Sit Supine to Sit Standby Assistance Sit to Supine Sit to Supine Standby Assistance PT-Transfer Assessment Sit to and From Stand Sit to and from Stand Standby Assistance Use of Upper Extremities Equipment Transfer Assistive Device Gait Belt Orthotic/Prosthetic Devices or Brace: No Transfers Transfer Destination Bed Gait Assessment Gait Gait Assistance Required: Standby Assistance Distance (Feet) 250 Able to Maintain Weight Bearing Status Yes During Gait Assistive Devices Assistive Device None Gait Belt Orthotic/Prosthetic Devices or Brace: Yes Gait Deviations General Gait Pattern Within Normal Limits Stair Climbing Assessment Evaluation Level of Assist On Stairs Standby Assistance Devices Stair Climbing Assistive Devices Left Railing Technique/Endurance Stair Climbing Direction Ascend and Descend Stair Climbing Technique Step Over Step Number of Steps Climbed 3 Query Text: Stair Climbing Set # Repetitions (reps) 1 M5 PT-IP Objective Assessments Start: 05/19/18 16:41 Freq: NEEDED Status: Active Protocol: Document 05/19/18 16:15 AB (Rec: 05/19/18 16:55 AB [id number]) Orientation Orientation/Cognition Level of Alertness Lethargic Orientation Name Birthday Place Situation Gross Range of Motion Lower Extremity ROM Assessment Within Functional Limits Strength Lower Extremity Strength Assessment Within Functional Limits Sensation Assessment Sensation Gross Sensation WNL Muscle Tone Muscle Tone WNL Yes M6 PT-IP Treatment Start: 05/19/18 16:41 Freq: NEEDED Status: Active Protocol: Document 05/19/18 16:15 AB (Rec: 05/19/18 16:55 AB [id number]) Physical Therapy Treatment Education Education Provided Precautions Post-Op Packet Safety M7 PT-IP Assessment and Plan Start: 05/19/18 16:41 Freq: NEEDED Status: Active Protocol: Document 05/20/18 11:20 GGD (Rec: 05/20/18 11:34 GGD [email or web address]) PT Summary Assessment and Plan Summary Assessment Summary Pt safe and stable with mobility. She need cues for keeping eyes open, due to pain C/O. She had no LOB with gait . She safe for home D/C when medically stable. Frequency of Treatment Frequency Of Treatment Once a Day Treatment Plan Other Recommendations and Next Treatment bed mobility, transfers, Focus ambulation Recommendations To Nursing Amount of Assist Needed 1 Person Assist Discharge Recommendations PT Discharge Recommendations Home with Assistance
--- NOTE | 2018-05-20 12:29 | PC.NURSE ---
0700- Safe handoff from RAJIV RN. Pt resting in bed; neck dressing w/ dried drainage. Pt states she has a WINTERS & neck pain @ surgical site; asking for pain medication. 0800- PA consulted about adding PO Diluadid to pt's pain management. Med ordered & given. FILLER SIFTER MACHINE in room working w/ pt for diff swallowing. Swallow eval ordered. 1030- Pt states pain is not controlled, asking for migraine meds. Meds now administered w/ applesauce to help w/ swallow issues. 1115- Walking w/ PT. Asking for muscle relaxers. 1300- IV Decadron ordered by ; given to pt w/o complications. Pt asking for rest at this time.
[2018-05-20] MEDS: DEXAMETHASONE 10 MG/ML VIAL IV (12:54)
--- NOTE | 2018-05-20 14:02 | PC.NURSE ---
Pt given dilaudid for pain and not enough for pain management, vistaril given and pt more comfortable. Dr. Solis called to check on patient and ordered decadron 10mg iv to help pts swelling in her neck, given at 1300. Pt is resting comfortably now.
[2018-05-20] MEDS: HYDROMORPHONE 2 MG TABLET PO ×3 (14:50→21:30)
--- NOTE | 2018-05-20 15:35 | ST.IPIE ---
Current Diagnoses Spinal stenosis, cervical region (05/20/18) Other cervical disc degeneration, unspecified cervical region (05/20/18) Past Medical History (Last Reviewed 05/14/18 @ 10:10 by Hebert Foley DO) Cervical dysplasia (Acute Medical) Anemia (Chronic Medical 1999) Anxiety (Chronic Medical 1999) Chronic headaches (Chronic Medical) Childhood onset Depression (Chronic Medical 1989) Foot pain (Chronic Medical 2000) Heavy menstrual period (Chronic Medical) History of use of contraceptive intrauterine device (IUD) (Chronic Medical 07/2010) Mirena Hypothyroidism (Chronic Medical ~1989) Migraine (Chronic Medical) Childhood onset Painful menstrual periods (Chronic Medical 1989) Restless legs syndrome (RLS) (Chronic Medical 2007) Shoulder pain (Chronic Medical 2013) Abnormal Pap smear of cervix (Resolved Medical 1994) Status post LEEP Chicken pox (Resolved Medical 1977) Chlamydia (Resolved Medical 1983) Diverticular disease (Resolved Medical 2014) Hospitalized diverticulitis Fractures (Resolved Medical 1981) Hemorrhoids (Resolved Medical 1989) ST IP Initial Evaulation Report 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 Solis Reason for Referral c/o dysphagia s/p ACDF Setting Assessment Location Acute Care Visit Type Note Type Initial Evaluation Next Note Type Next Note Type Treatment Note Patient Information Identification Type Name History Patient is s/p ACDF day 1. She had a swallow screen this AM per protocol. She c/o globus sensation and demonstrated throat clearing with thin liquids. A Swallow evaluation was ordered for further assessment. Subjective Observations Patient seen sitting upright on edge of bed in room. Evaluation Liquids Trialed Thin Solids Trialed Puree Administration Type Self-Feeding Oral Impairment WFL Oral Phase Comments Oral mechanism evaluation was within functional limits. No oral impairments observed. Pharyngeal Impairment Mildly Impaired Pharyngeal Phase Comments Suspect mild-moderate pharyngeal swelling likely resulting in pharyngeal residue and globus sensation. Patient is currently eating soft diet of puree, thin liquids. She cleared her throat consistently throughout the evaluation with and without oral intake. No coughing was observed. No advance textures trialed given patient's complaints. Suspect reduced epiglottic inversion and impaired PES opening. Findings Dysphagia Type Pharyngeal Rehabilitation Potential Good Impressions Suspect improvement in symptoms as swelling goes down over the course of the next few days. Education (verbal & written) was provided to the patient regarding general anatomy and possible causes of symptoms as well as recommendations to continue a soft diet, thin liquids and advance as tolerated. Education was provided regarding risk of aspiration. We discussed the possibility of an instrumental assessment to determine effectiveness of strategies. Patient stated she did not feel that was necessary at this point. We discussed and trialed an effortful swallow in an attempt to decrease sticking sensation; however, patient reported this was minimally effective. We also discussed alternating solids/ liquids and using a slow rate. Patient expressed understanding. Diet Recommendations Liquids Order Thin Diet Order Dysphagia Blenderized Medication Recommendations As Tolerated Whole in Carrier Comments Crush if needed Additional Dietary Needs Single Sips Controlled Sips Aspiration Precautions Recommended Precautions Upright at 90 Degrees Alternate Liquids/Solids Frequent Rest Periods Small Bites/Sips Double Swallow Treatment Plan Placement Recommendations after Home Discharge Appropriate for Therapy Yes Therapy Recommendations Follow-up with patient tomorrow. If symptoms have not improved, recommend MBS. Dysphagia Goals Raeann will implement strategies as needed (double swallow, alternate liquids/ solids, slow rate) to safely consume the least restrictive diet with minimal to no signs of aspiration.
--- NOTE | 2018-05-20 16:11 | PC.NURSE ---
Addendum entered by Emily Lenz R.N. 05/20/18 21:39: Stable pos op course. Continue w/ plan of care Original Note: Addendum entered by Emily Lenz R.N. 05/20/18 21:24: Uneventful evening, Pain more manageable w/dilaudid po. Med w. dialudid at 2120 for discomfort. Pt states she feel her swallowing is improving, Call light w/in reach, calls appropriately for needs. Original Note: Pt sitting in chair, States discomfort 07/08. Lungs clear, SpO2 96% RA HL right hand intact/patent. Dsg to anterior neck intact w/shadow drainage. Ambulated hallway w/ . Calll light w/in reach.
[2018-05-20] MEDS: SENNOSIDES 8.6 MG TABLET 17.2 MG PO (20:13)
[2018-05-20] MEDS: AMITRIPTYLINE 10 MG TABLET PO (20:13)
[2018-05-20] MEDS: GABAPENTIN 300 MG CAPSULE PO (20:13)
[2018-05-20] MEDS: MIRTAZAPINE 15 MG TABLET PO (20:14)
[2018-05-21 00:40] VITALS: BP 149/91; PULSE 76; RESP 16; TEMP 36.6; O2SAT 97
--- NOTE | 2018-05-21 00:51 | PC.NURSE ---
Addendum entered by Emperatriz Gutierrez R.N. 05/21/18 05:46: Found showering earlier by RN TRAVELING. Patient states she started urinating and couldn't stop so had urine running down her leg and needed to get clean. States pain is better but still rating 4/10. Original Note: Addendum entered by Emperatriz Gutierrez R.N. 05/21/18 04:05: Still with 4/10 headache and now neck also adding to the pain; medicated with Dilaudid + Vistaril and provided ice pack for comfort. Original Note: Addendum entered by Emperatriz Gutierrez R.N. 05/21/18 02:51: Complains of 5/10 sharp headache; requested/medicated with Fioricet. Original Note: Patient asleep at shift change, now awakened for assessment/vital signs. Is alert and oriented. Breath sounds CTA with RA sat of 97%. HRR with elevated BP of 149/91 but has been consistently high. Denies nausea. BT present and abdomen is soft; passing flatus. Denies dysuria, frequency or urgency. Turns self in bed and up to bathroom independently. Dressing to anterior neck is intact with old drainage noted; no new drainage since previous markings. Wearing soft cervical collar for comfort. Denies pain except for mild sore throat; no difficulty swallowing. Refusing SCD's. Fall risk score is moderate; is steady on feet.
[2018-05-21] MEDS: BUTALB/APAP/CAFFEINE 50/325/40 TABLET 1 EACH PO ×2 (02:48→09:49)
[2018-05-21 02:53] VITALS: BP 161/101; PULSE 72; RESP 16; TEMP 36.6; O2SAT 98
[2018-05-21 03:54] VITALS: BP 146/88
[2018-05-21] MEDS: HYDROMORPHONE 2 MG TABLET PO (04:03)
[2018-05-21] MEDS: hydrOXYzine pamoate 25 MG CAPSULE PO ×2 (04:03→11:17)
[2018-05-21] MEDS: LEVOTHYROXINE 75 MCG TABLET PO (05:45)
[2018-05-21] MEDS: LEVOTHYROXINE 100 MCG TABLET PO (05:45)
[2018-05-21 07:00] VITALS: BP 152/95; PULSE 72; RESP 18; TEMP 37.2; O2SAT 98
[2018-05-21] MEDS: HYDROMORPHONE 2 MG TABLET 4 MG PO ×2 (08:02→11:16)
[2018-05-21] MEDS: BUSPIRONE 15 MG TABLET 30 MG PO (08:04)
[2018-05-21] MEDS: DOCUSATE 100 MG CAPSULE PO (08:05)
--- NOTE | 2018-05-21 08:05 | PM.PNPO.1 ---
Subjective Date Patient Seen: 05/21/18 Time Patient Seen: 08:05 Interval history: Pain level is tolerable when it is at too. However when it starts going up she starts getting headaches and migraines and the pain gets out of control. Doing much better today than she had been yesterday. She has only been getting 1 tablet of Dilaudid and it does not last long enough so she is going to start taking 2. Exam Vital Signs (past 8 hours): - 05/21/18 00:40 05/21/18 02:53 05/21/18 03:54 Temperature 97.9 F 97.9 F Pulse Rate 76 72 Respiratory Rate 16 16 Blood Pressure 149/91 H 161/101 H 146/88 H Pulse Oximetry 97 98 05/21/18 07:00 Temperature 98.9 F Pulse Rate 72 Respiratory Rate 18 Blood Pressure 152/95 H Pulse Oximetry 98 Oxygen Delivery Method Room Air Oxygen Flow Rate 0 Const Orientation: alert and oriented x3 Back/Spine/Pelvis Other: Minimal dry drainage. 5/5 motor both upper extremities Assessment & Plan Post-op Postoperative Procedures Operation Date: 05/19/18 07:45 Actual Procedures Side Surgeon p C56 & C67 Anterior Discectomy & Artificial disc replacement Nagi Solis MD she feels comfortable for discharge today. Continue to mobilize as tolerated. Quality VTE Deep Vein Thrombosis/Pulmonary Embolism Present on Admission: No
[2018-05-21] MEDS: SERTRALINE 50 MG TABLET 200 MG PO (08:06)
[2018-05-21] MEDS: SODIUM CHLORIDE 0.9% FLUSH 10 ML IV (08:06)
--- NOTE | 2018-05-21 08:07 | PM.DS.1 ---
History of Present Illness Date Patient Seen: 05/21/18 Time Patient Seen: 08:07 Chief complaint: [id number] C5-6 & C6-7 ADR Narrative: Patient had cervical stenosis with radiculopathy with neck and arm pain. She had failed conservative management with physical therapy and injections. Discharge Providers Date of admission: 05/20/18 08:32 Primary care physician: Moi Bruner MD Consults: 05/19/18 11:07 Consult to Occupational Therapy Evaluate & Treat Comment: Physician Instructions: Evaluate and treat Consult to Physical Therapy Evaluate & Treat Comment: Physician Instructions: Evaluate and Treat 05/20/18 14:54 Consult to Speech Therapy Evaluate & Treat Comment: failed swallow screen Physician Instructions: Evaluate and treat Discharge provider: Nagi Solis MD Discharge Date: 05/21/18 Summary Discharge Diagnosis: Cervical stenosis and disc herniation with radiculopathy Hospital Course: She was brought to the operating room on 05/19/18 where she underwent a C5-6 and C6-7 anterior cervical diskectomy and artificial disc replacement. She had significant issues with pain control postoperatively. When her pain level started going up she began getting her migraine headaches which made things worse. She did have some difficulty swallowing, but this improved after a dose of steroid medication. She was evaluated by speech therapy that thought this was primarily swelling but everything seemed to be functioning mechanically. By postoperative day 2. She was feeling better and her pain was getting under decent control and she felt she was ready to go home. Status at Discharge Functional status at discharge: independent ambulation Overall status at discharge: patient is not back to baseline Exam Vital Signs (past 8 hours): - 05/21/18 00:40 05/21/18 02:53 05/21/18 03:54 Temperature 97.9 F 97.9 F Pulse Rate 76 72 Respiratory Rate 16 16 Blood Pressure 149/91 H 161/101 H 146/88 H Pulse Oximetry 97 98 05/21/18 07:00 Temperature 98.9 F Pulse Rate 72 Respiratory Rate 18 Blood Pressure 152/95 H Pulse Oximetry 98 Oxygen Delivery Method Room Air Oxygen Flow Rate 0 Const Orientation: alert and oriented x3 Back/Spine/Pelvis Other: Minimal dry drainage. 5/5 motor both upper extremities. Discharge Plan Discharge Plan Patient Disposition: Home Discharge comment: f/u 1.5 wks Discharge Med Rec/Prescriptions Prescriptions: New hydroxyzine pamoate 25 mg Capsule 25 mg PO Q4HR PRN (Reason: spasms) Qty: 20 RF: 0 hydromorphone 2 mg Tablet See Rx Instructions .ROUTE .COMPLEX PRN (Reason: Pain, Severe (7-10)) Qty: 40 RF: 0 Continued [testosterone 2%] 1 ml EXT Q DAY Qty: 30 RF: 0 Botox 200 UNIT recon soln 200 unit INJ SEE INSTRUCTIONS Qty: 1 RF: 3 buspirone 30 mg tablet 30 mg PO BID Qty: 60 RF: 5 mirtazapine 15 mg tablet 15 mg PO BEDTIME Qty: 60 RF: 0 fremanezumab-vfrm [Ajovy] 225 mg/1.5 mL syringe 225 mg SUBCUT QMONTH Qty: 1.5 RF: 11 norethindrone ac-eth estradiol [Loestrin 04/19 ()] 1-20 mg-mcg tablet 1 tab PO QDAY Qty: 3 RF: 3 sertraline 100 mg tablet 200 mg PO DAILY Qty: 60 RF: 3 levothyroxine [Levoxyl] 175 mcg tablet 175 mcg PO QDAY Qty: 90 RF: 0 amitriptyline 10 mg tablet 10 mg PO BEDTIME Qty: 30 RF: 11 Follow up/Referrals: Moi Bruner MD [Primary Care Provider] - Provider Discharge Instructions Activity: limited 10 lbs lift, collar for comfort Skin/Wound/Dressing Care Dressing: may change dressing and shower POD#5 Visit Report/Discharge Packet Stand Alone Forms: Surgery Discharge Discharge Data Primary Care Provider: Moi Bruner Attending Provider: Nagi Solis Admit Date/Time: 05/20/18 08:32 Quality VTE Deep Vein Thrombosis/Pulmonary Embolism Present on Admission: No
--- NOTE | 2018-05-21 08:30 | ST.IPTN ---
SKIP HOIST ENGINEER Treatment Note SKIP HOIST ENGINEER Treatment Note Start: 05/21/18 08:23 Freq: Status: Active Protocol: Document 05/21/18 08:23 TLC (Rec: 05/21/18 08:29 TLC [id number]) Speech Pathology Treatment Note Session Time Total Visit Minutes 20 Setting Treatment Setting Acute Care Visit Type Note Type Treatment Note General Information General Information Patient is s/p day 2 ACDF. She was seen yesterday for a a clinical swallow evaluation due to complaints of difficulty swallowing and globus sensation. Subjective Identification Type Name Observations/Patient Presentation Patient seen sitting up in bed with breakfast. She ordered a smoothie, cottage cheese and warm tea. Chief Complaint(s) Swallowing Objective Treatment Activities Patient reports her symptoms are improving. She continues to complain of a sore throat and pain when swallowing, though says her swallowing difficulty has improved from yesterday. She continues to clear her throat constantly. We discussed use of a silent throat clear to minimize vocal fold abuse. Assessment Patient Response to Treatment Good Rehab Potential Good Assessment of Improvement Patient's symptoms continue to improve each day. She will likely d/c home today. Recommend continuing a soft diet and advancing as tolerated. Use strategies including small bites/sips, slow rate, double swallow and alternating liquids/solids. Reviewed with Patient Home Exercise Program Patient/Caregiver Understanding Good
--- NOTE | 2018-05-21 09:15 | PT.IPTN ---
Current Diagnoses Spinal stenosis, cervical region (05/20/18) Other cervical disc degeneration, unspecified cervical region (05/20/18) Surgery Performed Operation Date: 05/19/18 07:45 Actual Procedures p C56 & C67 Anterior Discectomy & Artificial disc replacement - Nagi Solis MD Physical Therapy Treatment Note M2 PT-IP Current Condition Start: 05/19/18 16:41 Freq: NEEDED Status: Active Protocol: Document 05/19/18 16:15 AB (Rec: 05/19/18 16:55 AB [id number]) Physical Therapy Current Condition Current Condition Evaluation Date 05/19/18 Treatment Diagnosis s/p C5-6, C6-7 discectomy/ replacement; difficulty in walking Onset Date 05/19/18 Precautions Cervical Spine Precautions Soft Collar for Comfort No Heavy Lifting Log Roll M3 PT-IP Subjective Start: 05/19/18 16:41 Freq: NEEDED Status: Active Protocol: Document 05/21/18 09:20 GGD (Rec: 05/21/18 11:14 GGD [id number]) Subjective Physical Therapy Visit Type Type Patient Refusal Notes Pt states she is D/C and has no further needs. PT Discharge Recommendations Home with Assistance
== END 2018-05-21 13:10 | disposition home or self-care (01) ==
LOC: OR 15:18
PROVIDERS: Admitting Provider Physician Assistant; PCP Student in an Organized Health Care Education/Training Program; Visit Provider Orthopaedic Surgery
PROC: (CPT 22856; principal; 2018-05-19 07:45)
DX: M50.122 Cervical disc disorder at C5-C6 level with radiculopathy (principal); M48.02 Spinal stenosis, cervical region; E03.9 Hypothyroidism, unspecified; F41.9 Anxiety disorder, unspecified; F32.9 Major depressive disorder, single episode, unspecified; G95.9 Disease of spinal cord, unspecified
CPT/HCPCS: 22856; 22858; 72040; 76000; 92526; 92610; 94762; 97116; 97162; 97165; 97530; 97535; C1776; G0378; J0690; J1100; J1170; J2250; J2405; J2704; J3010

== ENCOUNTER → 2018-07-11 11:02 | Outpatient (CLI) | payer OTHER, SELFPAY ==
[2018-05-19 11:20] VITALS: BMI 30.9
--- NOTE | 2018-07-11 11:04 | DI.MG.S_ITS ---
BILATERAL DIGITAL SCREENING MAMMOGRAM 3D/2D WITH CAD: 07/11/2018 CLINICAL: Routine screening. Comparison is made to exams dated: 06/04/2017 mammogram, 05/17/2016 mammogram, and 03/29/2015 mammogram - [facility]. There are scattered fibroglandular elements in both breasts. Current study was also evaluated with a Computer Aided Detection (CAD) system. No significant masses, calcifications, or other findings are seen in either breast. There has been no significant interval change. IMPRESSION: NEGATIVE There is no mammographic evidence of malignancy. A 1 year screening mammogram is recommended. This exam was interpreted at Station ID: [id number]. NOTE: For mammograms, a report in lay terms will be sent to the patient. Approximately 15% of breast malignancies will not be visualized mammographically. In the management of a palpable breast mass, a negative mammogram must not discourage biopsy of a clinically suspicious lesion. Electronically Signed By: Adam ward/jing:07/13/2018 08:00:05 copy to: Hebert Vidal letter sent: Normal Exam ACR BI-RADS Category 1: Negative [id number]
== END ==
PROVIDERS: Visit Provider Internal Medicine
DX: Z12.31 Encounter for screening mammogram for malignant neoplasm of breast (principal)
CPT/HCPCS: 77063; 77067

== ENCOUNTER → 2019-09-24 15:42 | Outpatient (CLI) | payer OTHER, SELFPAY ==
[2019-08-27 16:49] VITALS: BMI 30.9
[2019-09-27 08:12] LABS: COVID19 Sendout Not Detected (Not Detect)
== END ==
PROVIDERS: PCP Internal Medicine; Visit Provider Physician Assistant
DX: Z01.812 Encounter for preprocedural laboratory examination (principal)
CPT/HCPCS: 87635

== ENCOUNTER 2019-09-27 06:21 | Day surgery (SDC) | payer OTHER, SELFPAY ==
[2019-08-27 16:49] VITALS: BMI 30.9
[2019-09-22 09:44] VITALS: BMI 32.3
[2019-09-27] VITALS (10 sets, daily range): BP systolic 118–135; BP diastolic 62–93; PULSE 67–86; RESP 9–19; TEMP 35.9–36.9; O2SAT 92–99; BMI 30.9
--- NOTE | 2019-09-27 07:05 | PM.GYNHP.1 ---
History of Present Illness History of Present Illness Reason for admission: vaginal bleeding (Menorrhagia) Narrative: Raeann Singleton is a 53 year old female admitted for endometrial ablation for menorrhagia [facility] Medical History (Updated 09/02/19 @ 09:30 by Gina Childs MD) Abnormal Pap smear of cervix (Resolved 1994) Anemia (Chronic 1999) Anxiety (Chronic 1999) Cervical disc disorder at C5-C6 level with myelopathy (Acute) Cervical disc disorder at C6-C7 level with myelopathy (Acute) Cervical dysplasia (Acute) Chicken pox (Resolved 1977) Chlamydia (Resolved 1983) Chronic headaches (Chronic) Depression (Chronic 1989) Diverticular disease (Resolved 2014) Foot pain (Chronic 2000) Fractures (Resolved 1981) Heavy menstrual period (Chronic) Hemorrhoids (Resolved 1989) History of use of contraceptive intrauterine device (IUD) (Chronic 07/2010) Hypothyroidism (Chronic ~1989) Migraine (Chronic) Painful menstrual periods (Chronic 1989) Restless legs syndrome (RLS) (Chronic 2007) Shoulder pain (Chronic 2013) Surgical History Hx of cholecystectomy (Acute ~1998) Normal colonoscopy (Resolved 2014) Plantar fasciitis (Resolved 2001) Plantar fasciitis (Resolved 2004) S/P cervical discectomy (Acute) Status post cholecystectomy (Resolved 1998) Status post loop electrosurgical excision procedure (LEEP) of cervix (Resolved 1995) Status post tubal ligation (Resolved 1997) Family History Father Age: 83 Alcoholism Emphysema, unspecified Grandmother Diabetes mellitus Mother Age: 81 Diabetes mellitus Thyroid disease COPD (chronic obstructive pulmonary disease) Heart disease Hypertension Emphysema, unspecified Sister Age: 57 Diabetes mellitus Family/Other Diabetes mellitus Thyroid disease Social History household members: spouse Smoking Status: Former smoker alcohol intake: current Meds Home Medications and Allergies Home Medications Medication Instructions Recorded Confirmed Type [testosterone 2%] 1 ml EXT Q DAY #30 gm 03/27/17 09/22/19 Rx Botox 200 unit INJ SEE INSTRUCTIONS #1 05/13/17 09/22/19 Rx vial dokdgftkwz-qzpqdydnsmzlz-hbwumvyb 1 cap PO .COMPLEX PRN #20 cap 07/06/18 09/22/19 Rx 50 mg-325 mg-40 mg capsule duloxetine PO .qday 08/04/18 09/02/19 History mirtazapine 15 mg tablet 30 mg PO BEDTIME tab 08/04/18 09/22/19 History syringe with needle, safety 3 mL #6 each 10/20/18 09/02/19 Rx 23 gauge x 1 bpbejiifsm-pmomgesnnzclw-byztoxmg 1 tab PO Q6H PRN #20 tab 11/03/18 09/22/19 Rx 50 mg-325 mg-40 mg tablet eifpsxiwqm-qmrmwhfickhyz-kbwgfgth 1 cap PO Q6H PRN #30 cap 02/16/19 09/22/19 Rx 50 mg-325 mg-40 mg capsule fremanezumab-vfrm 225 mg/1.5 mL 225 mg SUBCUT QMONTH #1.5 ml 03/08/19 09/22/19 Rx subcutaneous syringe lisinopril 40 mg tablet 40 mg PO DAILY 05/20/19 09/22/19 History lamotrigine 300 mg tablet,extended 300 mg PO DAILY 09/02/19 09/22/19 History release 24 hr levothyroxine 175 mcg tablet 150 mcg PO QDAY tab 09/02/19 09/22/19 History pramipexole 3 mg tablet,extended 3 mg PO BEDTIME 09/02/19 09/22/19 History release 24 hr quetiapine 200 mg tablet,extended 200 mg PO DAILY 09/02/19 09/22/19 History release 24 hr testosterone cypionate 200 mg/mL See Rx Instructions .ROUTE 09/20/19 Rx intramuscular oil .COMPLEX #1 ml Allergies Allergy/AdvReac Type Severity Reaction Status Date / Time etodolac [ETODOLAC] Allergy Severe SOB, Verified 09/24/19 16:39 ANAPHYLACTIC morphine [MORPHINE] AdvReac Mild Nausea Verified 09/24/19 16:39 Review of Systems Review of Systems ROS: Yes All systems reviewed with the patient and are negative except as otherwise documented Exam Narrative Exam Narrative: Patient is a 53-year-old para 2, using a tubal ligation for control, who comes in requesting consultation for possible endometrial ablation. In the past the patient was tried on a Mirena IUD but had too many side effects from it. She is having increasingly heavy menses with clots and lasting for most of the month with bleeding. Patient was tried on Provera therapy by her primary care physician it did not stop her bleeding. Patient had a history of a LEEP procedure in the past but has had normal Pap smears since. Patient did have hot flashes in the past but they have resolved. On physical exam: HEENT exam within normal limits. Lungs are clear to auscultation percussion. Heart is regular rate and rhythm no S3-S4 or murmurs. The patient's abdomen is soft, nontender. Well-healed abdominoplasty incisions. Normal external genitalia, vagina, cervix. Uterus is not enlarged, nontender. No adnexal masses or tenderness. Assessment & Plan Assessment and plan (1) Perimenopausal menorrhagia: Status: Acute Assessment & Plan narrative: Patient with menorrhagia requesting endometrial ablation. Consent form was reviewed with the patient in signed. Risk of perforation of the uterus that could damage to internal structures such as the bowel, bladder, ureters with possible additional surgery require to repair. Minimal risk of infection. Possibility of continued bleeding. Possibility of scar tissue that could result in pain. COVID-19 COVID-19 status: Negative Result date/Date tested (Pos, Neg/Pending): 09/24/19 Time Spent With Patient Time with patient: less than 15 minutes
--- NOTE | 2019-09-27 07:10 | PM.PREOP ---
Pre-operative Note COVID-19 COVID-19 status: Negative Result date/Date tested (Pos, Neg/Pending): 09/24/19 Interval Note History & Physical reviewed/Exam performed by Physician: Yes Changes to H&P: No
[2019-09-27] MEDS: LACTATED RINGERS 1,000 ML 42 ML IV (07:29)
--- NOTE | 2019-09-27 08:02 | SUR.OPER ---
Lithotomy on padded OR bed, head on pillow, arms secured on padded arm boards at <90 degrees abduction. Legs secured in padded yellow fins stirrups.
[2019-09-27] MEDS: CEFAZOLIN 1 GM VIAL IV (08:45)
[2019-09-27] MEDS: fentaNYL 100 MCG/2 ML INJ IV ×3 (09:01→09:14)
--- NOTE | 2019-09-27 09:03 | PM.OP.1 ---
Operative Date/Time/Diagnoses Date of procedure: 09/27/19 Time of procedure: 09:03 Pre-op diagnosis: Menorrhagia Post-op diagnosis: same Procedure & Clinicians Procedure: Attempt at NovaSure ablation with subsequent hysteroscopy Same procedure as scheduled: Yes Indications: Menorrhagia Surgeon: Gina Childs Click Yes if Unassisted: Yes Anesthesia Type: General Operative Notes Findings: Uterus sounded to 10 cm with cavity length of 6 cm. The width was 4.2 cm. The endometrial ablation cautery was performed for 30 seconds when the procedure stopped due to blood in the vacuum catheter. A 2nd NovaSure ablation fan was placed but vacuum could not be obtained so hysteroscopy was performed. Irregular uterine contour with no evidence of perforation. Closure Type: not applicable Specimen(s): none sent Estimated Blood Loss (mL): 30 Blood products transfused: none Procedure in detail: Patient was brought to the operating room where she was underwent general anesthesia was placed in the [facility] stirru. Pulsatile stockings were in place and functional. Antibiotics were not indicated. Warming was with blankets. A check system was reviewed with the staff in the room. A single-tooth tenaculum was placed on the anterior lip of the cervix. The cervix was already significantly dilated. The NovaSure sound was used to determine the length of the uterus which was 6 cm. This was set on the NovaSure device. The device was placed in the uterus and the width determined to be 4.2 cm. The length and width were entered into the NovaSure machine. The plunger was pushed to the cervix to effect a good vacuum seal. This was documented by the machine. Cauterization was done with a total power of 150 but stopped at 30 seconds. It appeared that the vacuum tubing filled with blood. The NovaSure array was pulled back into the device and then the device removed. A 2nd NovaSure array was placed but unable to get an adequate vacuum seal. Decision was made to look with the hysteroscopy. The cervix was dilated to a #8 Hegar dilator. The hysteroscope was placed with a sorbitol solution running in. There did not appear to be any obvious perforation. Areas that were incompletely treated were treated with the ball cautery set at 80 w of cutting. Approximately 3500 cc a sobitol went in with approximately equal amount returned. Due to the multiple passes into the uterus decision was made to give 1 g Ancef. Patient tolerated the procedure well. Counts of instruments and sponges were correct. Patient went to recovery room in good condition. Complications: other (Inability to complete the procedure with NovaSure so completed with hysteroscopy) Post-operative Condition: stable Disposition: same day surgery Plan for aftercare: Home when awake and stable.
--- NOTE | 2019-09-27 09:14 | SUR.PHASEI ---
States that her pain is improving, reminded her that she has rated the pain at 6/10 previously; now states that it was a 9 previously. Behaviors indicate improvement.
[2019-09-27] MEDS: ACETAMINOPHEN 325 MG TABLET 975 MG PO (09:20)
[2019-09-27] MEDS: GABAPENTIN 300 MG CAPSULE PO (09:21)
--- NOTE | 2019-09-27 09:50 | SUR.PHASEI ---
0946 occasionally desat to 88% with rapid rebound. Pt awake of need to deep breathe, pain level has improved. Otherwise stable.
--- NOTE | 2019-09-27 10:36 | SUR.PREOP ---
Dr. Childs's office called to talk with pt, pt ready to go after her visit. Kristen pad remain c/d/i. Pt left when ready and left in stable condition.
== END 2019-09-27 10:30 | disposition home or self-care (01) ==
PROVIDERS: PCP Internal Medicine; Referring Provider Internal Medicine; Visit Provider Specialist
PROC: 0U5B8ZZ Destruction of Endometrium, Via Natural or Artificial Opening Endoscopic (ICD-10-PCS; CPT 58563; principal; 2019-09-27 07:45)
DX: N92.4 Excessive bleeding in the premenopausal period (principal); I10 Essential (primary) hypertension; E03.9 Hypothyroidism, unspecified; F41.9 Anxiety disorder, unspecified
CPT/HCPCS: 58563; J0690; J1100; J2250; J2405; J2704; J3010

== ENCOUNTER → 2020-03-13 17:28 | Outpatient (ROUT) | payer OTHER, SELFPAY ==
[2019-08-27 16:49] VITALS: BMI 30.9
[2020-03-13 18:05] LABS: Influenza A - CEPHEID Flu A NEGATIVE (NEGATIVE); Influenza B - CEPHEID Flu B NEGATIVE (NEGATIVE)
== END ==
PROVIDERS: PCP Internal Medicine; Visit Provider Internal Medicine
DX: R05 Cough (principal); R50.9 Fever, unspecified
CPT/HCPCS: 87502

== ENCOUNTER 2020-06-23 22:45 | Emergency (ER) | payer OTHER, SELFPAY ==
[2019-08-27 16:49] VITALS: BMI 30.9
--- NOTE | 2020-06-23 23:26 | PC.NURSE ---
Pt. was moved into Rm 13 cooperative with staff when changing into hospital scrubs.
[2020-06-23 23:42] LABS: Add Manual Diff / Slide Review NO; Basophils Absolute Auto 100 /uL (0-100); Eosinophils Absolute Auto 300 /uL (0-450); Eosinophils Percent Auto 4.5 % (2-4); Hemoglobin 13.8 g/dL (12.0-16.0); Lymphocytes Absolute Auto 1700 /uL (1100-4500); Lymphocytes Percent Auto 22.3 % (25-40); Mean Corpuscular HGB Conc 33.7 % (30-36); Mean Corpuscular Hemoglobin 31.7 PG (26-34); Mean Corpuscular Volume 94.1 fL (80-100); Monocytes Absolute Auto 600 /uL (0-900); Monocytes Percent Auto 7.2 % (3-14); Neutrophils Absolute Auto 5000 /uL (1500-7000); Platelet Count 222 X10^3/uL (150-400); Red Blood Cell Count 4.36 X10^6/uL (4.0-5.2); Red Cell Distribution Width 14.2 % (11.6-14.8); White Blood Cell Count 7.7 X10^3/uL (4.5-11.0)
[2020-06-23 23:49] LABS: Salicylate < 1.0 mg/dL (<20)
[2020-06-23 23:51] LABS: Acetaminophen < 10 ug/mL (10-30); Alanine Aminotransferase 20 IU/L (<35); Albumin Globulin Ratio 1.4 (1.0-2.8); Alkaline Phosphatase 66 U/L (38-126); Aspartate Aminotransferase 24 IU/L (14-36); BUN Creatinine Ratio 13.6 (6-22); Bilirubin Total 0.2 mg/dL (0.2-1.3); Blood Urea Nitrogen 11 mg/dL (7-17); Calcium 9.8 mg/dL (8.4-10.2); Carbon Dioxide 26 mmol/L (22-32); Chloride 107 mmol/L (98-107); Estimated Glomerular Filt Rate > 60.0 mL/min (>60); Ethanol (ETOH) 159 mg/dL; Globulin 2.8 g/dL (1.7-4.1); Glucose 98 mg/dL (70-100); HEMOLYSIS < 15 (0-50); Lipase 37 U/L (23-300); Potassium 3.9 mmol/L (3.4-5.1); Sodium 142 mmol/L (137-145); Total Protein 6.8 g/dL (6.3-8.2)
[2020-06-23 23:52] VITALS: BP 99/57; PULSE 77; RESP 18; TEMP 36.4; O2SAT 95
--- NOTE | 2020-06-24 00:25 | PC.NURSE ---
Pt. appears asleep.
[2020-06-24 00:32] LABS: Thyroid Stimulating Hormone 2.67 uIU/mL (0.47-4.68)
[2020-06-24 00:36] LABS: Magnesium 2.1 mg/dL (1.6-2.3)
[2020-06-24 04:14] VITALS: BP 115/71; PULSE 91; RESP 18; O2SAT 94
[2020-06-24 04:15] LABS: Ethanol (ETOH) 63 mg/dL
--- NOTE | 2020-06-24 04:15 | ED.PSYCH ---
HPI - Psych General Chief Complaint: Psychiatric Symptoms Stated Complaint: TOXICOLOGY Time Seen by Provider: 06/23/20 22:56 Source: patient and police Mode of arrival: other (Police) Limitations: other (Intoxication) History of Present Illness HPI Narrative: Patient is a 54-year-old female with a prior history of anxiety and depression. She is currently on medications for this. She did have a prior suicide attempt many years ago. The police were called to the patient's house by her after she reportedly had made ?suicidal statements ?and also claimed to have taken 10x 100 mg Seroquel tablets. Patient states she did take these 10 tablets. She denied taking any other medication. These tablets were prescribed to her. She states that she took them in an effort to ?go to sleep and not wake up ?. She told nursing staff that she was not trying to kill herself and that she just wanted to sleep however was okay if she did not wake up. She reportedly told the police that she took them and did not want to and if she did she would just take more. She also admits to drinking alcohol. Patient is somewhat unwilling to provide a lot of information regarding the situation as to why she took the pills but it does seem to stem around a adult child who has fairly significant mental health issues. Upon arrival patient has no complaints. Related Data Home Medications Medication Instructions Recorded Confirmed lisinopril 40 mg tablet 40 mg PO DAILY 05/20/19 09/27/19 lamotrigine 300 mg tablet,extended 300 mg PO DAILY 09/02/19 09/27/19 release 24 hr pramipexole 3 mg tablet,extended 3 mg PO BEDTIME 09/02/19 09/27/19 release 24 hr quetiapine 200 mg tablet,extended 200 mg PO DAILY 09/02/19 09/27/19 release 24 hr levothyroxine 150 mcg PO DAILY 09/27/19 09/27/19 Previous Rx's Medication Instructions Recorded [testosterone 2%] 1 ml EXT Q DAY #30 gm 03/27/17 Botox 200 unit INJ SEE INSTRUCTIONS #1 05/13/17 vial xqglvouekr-evynxsichqfxo-ccckvfss 1 cap PO .COMPLEX PRN #20 cap 07/06/18 50 mg-325 mg-40 mg capsule syringe with needle, safety 3 mL #6 each 10/20/18 23 gauge x 1 vwdiqsdork-cagmowwhlcyhr-nmmbxlqa 1 tab PO Q6H PRN #20 tab 11/03/18 50 mg-325 mg-40 mg tablet yevjxdcbkw-unguhgdatjhaf-ixcbvhst 1 cap PO Q6H PRN #30 cap 02/16/19 50 mg-325 mg-40 mg capsule fremanezumab-vfrm 225 mg/1.5 mL 225 mg SUBCUT QMONTH #1.5 ml 03/08/19 subcutaneous syringe oxycodone-acetaminophen 5 mg-325 2 tab PO Q4-6H PRN #20 tab 09/27/19 mg tablet testosterone cypionate 200 mg/mL See Rx Instructions .ROUTE 05/15/20 intramuscular oil .COMPLEX #1 ml Allergies Allergy/AdvReac Type Severity Reaction Status Date / Time etodolac [ETODOLAC] Allergy Severe SOB, Verified 09/27/19 07:14 ANAPHYLACTIC morphine [MORPHINE] AdvReac Mild Nausea Verified 09/27/19 07:14 Review of Systems Constitutional Constitutional: Denies headache(s) ENT Ears, Nose, Mouth, and Throat: Denies vertigo, Denies dizziness and Denies headache(s) Cardiovascular Cardiovascular: Denies chest pain and Denies dyspnea Respiratory Respiratory: Denies dyspnea Gastrointestinal Gastrointestinal: Denies abdominal pain Integumentary/Breasts Skin/Breast: Denies rash Neurologic Neurologic: Denies vertigo, Denies dizziness and Denies headache(s) Comments: Feeling tired Psychiatric Psychiatric: Reports depression and Reports suicidal ideation Hematologic/Lymphatic On Anticoagulants: No Allergic/Immunologic Allergic/Immunologic: Denies urticaria Patient History Medical History Abnormal Pap smear of cervix (1994) Anemia (1999) Anxiety (1999) Cervical disc disorder at C5-C6 level with myelopathy Cervical disc disorder at C6-C7 level with myelopathy Cervical dysplasia Chicken pox (1977) Chlamydia (1983) Chronic headaches Depression (1989) Diverticular disease (2014) Foot pain (2000) Fractures (1981) Heavy menstrual period Hemorrhoids (1989) History of use of contraceptive intrauterine device (IUD) (07/2010) Hypothyroidism (~1989) Migraine Painful menstrual periods (1989) Restless legs syndrome (RLS) (2007) Shoulder pain (2013) Surgical History Hx of cholecystectomy (~1998) Normal colonoscopy (2014) Plantar fasciitis (2001) Plantar fasciitis (2004) S/P cervical discectomy Status post cholecystectomy (1998) Status post loop electrosurgical excision procedure (LEEP) of cervix (1995) Status post tubal ligation (1997) Family History Father Age: 83 Alcoholism Emphysema, unspecified Grandmother Diabetes mellitus Mother Age: 81 Diabetes mellitus Thyroid disease COPD (chronic obstructive pulmonary disease) Heart disease Hypertension Emphysema, unspecified Sister Age: 57 Diabetes mellitus Family/Other Diabetes mellitus Thyroid disease Social History household members: spouse Smoking Status: Former smoker alcohol intake: current Smoking Status: Former smoker alcohol intake frequency: 0-2 drinks per day Substance Use Type: does not use Exam Initial Vital Signs Initial Vital Signs: Vital Signs Temperature 97.5 F L 06/23/20 23:52 Pulse Rate 77 06/23/20 23:52 Respiratory Rate 18 06/23/20 23:52 Blood Pressure 99/57 L 06/23/20 23:52 Pulse Oximetry 95 06/23/20 23:52 Const General: cooperative and comfortable Limitations: mental status not altered HENMT Head: normal to inspection and normocephalic Resp Effort & Inspection: normal respiratory effort Cardio Rate: regular rate GI Inspection: non-distended Skin Lesions: no lesions Rashes: no rashes Neuro General: patient alert and patient awake Extrem General: normal to inspection Psych Appearance: disheveled Speech and Movement: restless Mood: dysthymic mood Affect: sad and blunted Attitude: cooperative (Only somewhat cooperative) Course Orders Ordered: ED Orders 06/23/20 22:57 Test Urine Stat 06/23/20 22:58 Consult to [facility] [place] Complaint Operator Stat EKG-12 Lead Stat 06/23/20 23:25 Acetaminophen Stat Complete Blood Count AUTO DIFF Stat Comprehensive Metabolic Panel Stat Ethanol (ETOH) Stat Lipase Stat Salicylate Stat Thyroid Stimulating Hormone Stat 06/24/20 00:23 Magnesium Stat 06/24/20 03:55 Ethanol (ETOH) Stat 06/24/20 04:00 COVID19 -Nasal swab/Pre-Proc Stat EKG-12 Lead Routine 06/24/20 04:08 Urinalysis and Microscopic Stat Urine Drug Screen, Rapid Stat 06/24/20 07:00 EKG-12 Lead Stat Vital Signs Vital signs: Vital Signs - 8 hr 06/23/20 23:52 06/24/20 04:14 Temperature 97.5 F L Pulse Rate 77 91 H Respiratory Rate 18 18 Blood Pressure 99/57 L 115/71 Pulse Oximetry 95 94 MDM - Psych Lab Data Attestation: I reviewed the patient's lab results. Result diagrams: 06/23/20 23:25 06/23/20 23:25 Labs: Lab Results 06/23/20 06/23/20 06/23/20 Range/Units 23:25 23:25 23:25 WBC 7.7 (4.5-11.0) X10^3/uL RBC 4.36 (4.0-5.2) X10^6/uL Hgb 13.8 (12.0-16.0) g/dL Hct 41.0 (36-46) % MCV 94.1 (80-100) fL MCH 31.7 (26-34) PG MCHC 33.7 (30-36) % RDW 14.2 (11.6-14.8) % Plt Count 222 (150-400) X10^3/uL Neut % (Auto) 65.0 (50-75) % Lymph % (Auto) 22.3 L (25-40) % Potter % (Auto) 7.2 (3-14) % Eos % (Auto) 4.5 H (2-4) % Baso % (Auto) 1.0 (0-2) % Neut # (Auto) 5000 (0162-3569) /uL Lymph # (Auto) 1700 (9362-2458) /uL Potter # (Auto) 600 (0-900) /uL Eos # (Auto) 300 (0-450) /uL Baso # (Auto) 100 (0-100) /uL Sodium 142 (137-145) mmol/L Potassium 3.9 (3.4-5.1) mmol/L Chloride 107 (98-107) mmol/L Carbon Dioxide 26 (22-32) mmol/L BUN 11 (7-17) mg/dL Creatinine 0.81 (0.52-1.04) mg/dL Estimated GFR > 60.0 (>60) mL/min BUN/Creatinine Ratio 13.6 (6-22) Glucose 98 (70-100) mg/dL Calcium 9.8 (8.4-10.2) mg/dL Magnesium (1.6-2.3) mg/dL Total Bilirubin 0.2 (0.2-1.3) mg/dL AST 24 (14-36) IU/L ALT 20 (<35) IU/L Alkaline Phosphatase 66 (38-126) U/L Total Protein 6.8 (6.3-8.2) g/dL Albumin 4.0 (3.5-5.0) g/dL Globulin 2.8 (1.7-4.1) g/dL Albumin/Globulin Ratio 1.4 (1.0-2.8) Lipase 37 (23-300) U/L TSH 2.67 (0.47-4.68) uIU/mL Urine Color Urine Appearance Urine pH (4.5-8.0) Ur Specific [place] (1.000-1.035) Urine Protein (Negative) Urine Glucose (UA) (Negative) g/dL Urine Ketones (NEGATIVE) Urine Occult Blood (Negative) Urine Nitrate (Negative) Urine Bilirubin (NEGATIVE) Urine Urobilinogen (0.2) E.U./dL Ur Leukocyte Esterase (NEGATIVE) Urine RBC (0-5/HPF) Urine WBC (0-5/HPF) Ur Squamous Epith Cells (0-5/HPF) Urine Bacteria (None) Ur Culture Indicated? Urine Test (Negative) Salicylates (<20) mg/dL U Opiates 300ng/mL cut (Negative) Ur Oxycodone Screen (Negative) Urine Methadone Screen (Negative) Acetaminophen < 10 L (10-30) ug/mL Ur Barbiturates Screen (Negative) U Tricyclic Antidepress (Negative) Ur Phencyclidine Scrn (Negative) Ur Amphetamines Screen (Negative) U Methamphetamines Scrn (Negative) Ur MDMA Scrn (Ecstasy) (Negative) U Benzodiazepines Scrn (Negative) Urine Cocaine Screen (Negative) U Marijuana (THC) Screen (Negative) Ethyl Alcohol 159 H ( - 10) mg/dL SARS-CoV-2 (PCR) (Negative) 06/23/20 06/23/20 06/24/20 Range/Units 23:25 23:25 03:55 WBC (4.5-11.0) X10^3/uL RBC (4.0-5.2) X10^6/uL Hgb (12.0-16.0) g/dL Hct (36-46) % MCV (80-100) fL MCH (26-34) PG MCHC (30-36) % RDW (11.6-14.8) % Plt Count (150-400) X10^3/uL Neut % (Auto) (50-75) % Lymph % (Auto) (25-40) % Potter % (Auto) (3-14) % Eos % (Auto) (2-4) % Baso % (Auto) (0-2) % Neut # (Auto) (6707-5559) /uL Lymph # (Auto) (3104-9911) /uL Potter # (Auto) (0-900) /uL Eos # (Auto) (0-450) /uL Baso # (Auto) (0-100) /uL Sodium (137-145) mmol/L Potassium (3.4-5.1) mmol/L Chloride (98-107) mmol/L Carbon Dioxide (22-32) mmol/L BUN (7-17) mg/dL Creatinine (0.52-1.04) mg/dL Estimated GFR (>60) mL/min BUN/Creatinine Ratio (6-22) Glucose (70-100) mg/dL Calcium (8.4-10.2) mg/dL Magnesium 2.1 (1.6-2.3) mg/dL Total Bilirubin (0.2-1.3) mg/dL AST (14-36) IU/L ALT (<35) IU/L Alkaline Phosphatase (38-126) U/L Total Protein (6.3-8.2) g/dL Albumin (3.5-5.0) g/dL Globulin (1.7-4.1) g/dL Albumin/Globulin Ratio (1.0-2.8) Lipase (23-300) U/L TSH (0.47-4.68) uIU/mL Urine Color Urine Appearance Urine pH (4.5-8.0) Ur Specific [place] (1.000-1.035) Urine Protein (Negative) Urine Glucose (UA) (Negative) g/dL Urine Ketones (NEGATIVE) Urine Occult Blood (Negative) Urine Nitrate (Negative) Urine Bilirubin (NEGATIVE) Urine Urobilinogen (0.2) E.U./dL Ur Leukocyte Esterase (NEGATIVE) Urine RBC (0-5/HPF) Urine WBC (0-5/HPF) Ur Squamous Epith Cells (0-5/HPF) Urine Bacteria (None) Ur Culture Indicated? Urine Test (Negative) Salicylates < 1.0 (<20) mg/dL U Opiates 300ng/mL cut (Negative) Ur Oxycodone Screen (Negative) Urine Methadone Screen (Negative) Acetaminophen (10-30) ug/mL Ur Barbiturates Screen (Negative) U Tricyclic Antidepress (Negative) Ur Phencyclidine Scrn (Negative) Ur Amphetamines Screen (Negative) U Methamphetamines Scrn (Negative) Ur MDMA Scrn (Ecstasy) (Negative) U Benzodiazepines Scrn (Negative) Urine Cocaine Screen (Negative) U Marijuana (THC) Screen (Negative) Ethyl Alcohol 63 H ( - 10) mg/dL SARS-CoV-2 (PCR) (Negative) 06/24/20 06/24/20 06/24/20 Range/Units 04:00 04:08 04:08 WBC (4.5-11.0) X10^3/uL RBC (4.0-5.2) X10^6/uL Hgb (12.0-16.0) g/dL Hct (36-46) % MCV (80-100) fL MCH (26-34) PG MCHC (30-36) % RDW (11.6-14.8) % Plt Count (150-400) X10^3/uL Neut % (Auto) (50-75) % Lymph % (Auto) (25-40) % Potter % (Auto) (3-14) % Eos % (Auto) (2-4) % Baso % (Auto) (0-2) % Neut # (Auto) (9872-7200) /uL Lymph # (Auto) (3094-2785) /uL Potter # (Auto) (0-900) /uL Eos # (Auto) (0-450) /uL Baso # (Auto) (0-100) /uL Sodium (137-145) mmol/L Potassium (3.4-5.1) mmol/L Chloride (98-107) mmol/L Carbon Dioxide (22-32) mmol/L BUN (7-17) mg/dL Creatinine (0.52-1.04) mg/dL Estimated GFR (>60) mL/min BUN/Creatinine Ratio (6-22) Glucose (70-100) mg/dL Calcium (8.4-10.2) mg/dL Magnesium (1.6-2.3) mg/dL Total Bilirubin (0.2-1.3) mg/dL AST (14-36) IU/L ALT (<35) IU/L Alkaline Phosphatase (38-126) U/L Total Protein (6.3-8.2) g/dL Albumin (3.5-5.0) g/dL Globulin (1.7-4.1) g/dL Albumin/Globulin Ratio (1.0-2.8) Lipase (23-300) U/L TSH (0.47-4.68) uIU/mL Urine Color Yellow Urine Appearance Clear Urine pH 5.0 (4.5-8.0) Ur Specific [place] 1.020 (1.000-1.035) Urine Protein Negative (Negative) Urine Glucose (UA) Negative (Negative) g/dL Urine Ketones Negative (NEGATIVE) Urine Occult Blood Negative (Negative) Urine Nitrate Negative (Negative) Urine Bilirubin Negative (NEGATIVE) Urine Urobilinogen 0.2 (0.2) E.U./dL Ur Leukocyte Esterase Negative (NEGATIVE) Urine RBC None seen (0-5/HPF) Urine WBC None seen (0-5/HPF) Ur Squamous Epith Cells 1-5 /hpf (0-5/HPF) Urine Bacteria Few (2-10) H (None) Ur Culture Indicated? Cult not indicated Urine Test Negative (Negative) Salicylates (<20) mg/dL U Opiates 300ng/mL cut (Negative) Ur Oxycodone Screen (Negative) Urine Methadone Screen (Negative) Acetaminophen (10-30) ug/mL Ur Barbiturates Screen (Negative) U Tricyclic Antidepress (Negative) Ur Phencyclidine Scrn (Negative) Ur Amphetamines Screen (Negative) U Methamphetamines Scrn (Negative) Ur MDMA Scrn (Ecstasy) (Negative) U Benzodiazepines Scrn (Negative) Urine Cocaine Screen (Negative) U Marijuana (THC) Screen (Negative) Ethyl Alcohol ( - 10) mg/dL SARS-CoV-2 (PCR) Negative (Negative) 06/24/20 Range/Units 04:08 WBC (4.5-11.0) X10^3/uL RBC (4.0-5.2) X10^6/uL Hgb (12.0-16.0) g/dL Hct (36-46) % MCV (80-100) fL MCH (26-34) PG MCHC (30-36) % RDW (11.6-14.8) % Plt Count (150-400) X10^3/uL Neut % (Auto) (50-75) % Lymph % (Auto) (25-40) % Potter % (Auto) (3-14) % Eos % (Auto) (2-4) % Baso % (Auto) (0-2) % Neut # (Auto) (4954-5832) /uL Lymph # (Auto) (2699-1872) /uL Potter # (Auto) (0-900) /uL Eos # (Auto) (0-450) /uL Baso # (Auto) (0-100) /uL Sodium (137-145) mmol/L Potassium (3.4-5.1) mmol/L Chloride (98-107) mmol/L Carbon Dioxide (22-32) mmol/L BUN (7-17) mg/dL Creatinine (0.52-1.04) mg/dL Estimated GFR (>60) mL/min BUN/Creatinine Ratio (6-22) Glucose (70-100) mg/dL Calcium (8.4-10.2) mg/dL Magnesium (1.6-2.3) mg/dL Total Bilirubin (0.2-1.3) mg/dL AST (14-36) IU/L ALT (<35) IU/L Alkaline Phosphatase (38-126) U/L Total Protein (6.3-8.2) g/dL Albumin (3.5-5.0) g/dL Globulin (1.7-4.1) g/dL Albumin/Globulin Ratio (1.0-2.8) Lipase (23-300) U/L TSH (0.47-4.68) uIU/mL Urine Color Urine Appearance Urine pH (4.5-8.0) Ur Specific [place] (1.000-1.035) Urine Protein (Negative) Urine Glucose (UA) (Negative) g/dL Urine Ketones (NEGATIVE) Urine Occult Blood (Negative) Urine Nitrate (Negative) Urine Bilirubin (NEGATIVE) Urine Urobilinogen (0.2) E.U./dL Ur Leukocyte Esterase (NEGATIVE) Urine RBC (0-5/HPF) Urine WBC (0-5/HPF) Ur Squamous Epith Cells (0-5/HPF) Urine Bacteria (None) Ur Culture Indicated? Urine Test (Negative) Salicylates (<20) mg/dL U Opiates 300ng/mL cut Negative (Negative) Ur Oxycodone Screen Negative (Negative) Urine Methadone Screen Negative (Negative) Acetaminophen (10-30) ug/mL Ur Barbiturates Screen Negative (Negative) U Tricyclic Antidepress Positive H (Negative) Ur Phencyclidine Scrn Negative (Negative) Ur Amphetamines Screen Negative (Negative) U Methamphetamines Scrn Negative (Negative) Ur MDMA Scrn (Ecstasy) Negative (Negative) U Benzodiazepines Scrn Negative (Negative) Urine Cocaine Screen Negative (Negative) U Marijuana (THC) Screen Negative (Negative) Ethyl Alcohol ( - 10) mg/dL SARS-CoV-2 (PCR) (Negative) ECG Data Attestation: I personally reviewed and interpreted this ECG as follows: Prior ECG tracings: not available for review Interpretation: Admission EKG Sinus rhythm Ventricular rate is 76 Incomplete right bundle-branch block Normal QRS QTC 4 for a milliseconds No ST T wave changes 4 hour repeat EKG Normal sinus rhythm Ventricular rate 89 Incomplete right bundle-branch block QRS 106 milliseconds QTC [address] T wave changes Thirty EKG Sinus rhythm Ventricular rate 97 QRS 96 milliseconds QTC 469 MDM Narrative Medical decision making narrative: Patient admits to taking the Seroquel. It occurred approximately 30-60 minutes prior to arrival here in the emergency department. There has been some mixed responses distal line she took these medications. I do not know the exact ?suicidal statements ?that remained to her but please stated that he told them that she was making comments that she wanted to kill herself. She did tell police that she took the pills in order to go to sleep and not wake up and she did wake up she would just take more them. She told nursing staff that she took the pills only to go to sleep. She told me that she took the pills in order to go to sleep that if she did wake up that would be okay with her. She did admit to drinking alcohol today. Her alcohol was elevated upon arrival in this improved with time. She is no longer legally intoxicated. I did discuss the case with poison control who recommended the 4 hour repeat EKG. They stated patient would be medically cleared with regard to the Seroquel ingestion 8 hours after having ingested the medicine as long she did not have any symptoms. Patient continues to be symptom-free. Patient is medically cleared. Social Work consult placed. Care turned over to Dr. santoro to follow-up and disposition. Discharge Plan Departure Prescriptions: No Action [testosterone 2%] 1 ml EXT Q DAY Qty: 30 RF: 0 Botox 200 UNIT recon soln 200 unit INJ SEE INSTRUCTIONS Qty: 1 RF: 3 wihanwkbwz-jmagtkuzpjhlp-nwtj 50-325-40 mg capsule 1 cap PO .COMPLEX PRN (Reason: headache) Qty: 20 RF: 5 (DME) BD Safety-Claritza Detachable Needl 3 mL 23 gauge x 1 syringe See Dose Instructions .ROUTE .MEDSUPPLY Qty: 6 RF: 1 Ajovy Syringe 225 mg/1.5 mL syringe 225 mg SUBCUT QMONTH Qty: 1.5 RF: 11 oxycodone-acetaminophen 5-325 mg tablet 2 tab PO Q4-6H PRN (Reason: pain) Qty: 20 RF: 0 testosterone cypionate 200 mg/mL oil See Rx Instructions .ROUTE .COMPLEX Qty: 1 RF: 5 quetiapine 200 mg tablet extended release 24 hr 200 mg PO DAILY RF: 0 lamotrigine 300 mg tablet extended release 24hr 300 mg PO DAILY RF: 0 pramipexole [Mirapex ER] 3 mg tablet extended release 24 hr 3 mg PO BEDTIME RF: 0 levothyroxine 150 mcg Tablet 150 mcg PO DAILY RF: 0 dchlqqydwp-scckakfzsthaw-wxmq 50-325-40 mg capsule 1 cap PO Q6H PRN (Reason: pain) Qty: 30 RF: 0 lisinopril 40 mg tablet 40 mg PO DAILY RF: 0 zunmwquqoi-nsvrivlrxjezy-vwwo 50-325-40 mg tablet 1 tab PO Q6H PRN (Reason: pain) Qty: 20 RF: 0
[2020-06-24 04:18] LABS: RBC Urine None Seen (0-5/HPF); WBC Urine None Seen (0-5/HPF)
[2020-06-24 04:21] LABS: Appearance Urine UA CLEAR; Bilirubin Urine UA NEGATIVE (NEGATIVE); Color Urine UA YELLOW; Glucose Urine UA NEGATIVE (Negative); Ketones Urine UA NEGATIVE (NEGATIVE); Leukocyte Esterase Urine UA NEGATIVE (NEGATIVE); Nitrite Urine UA NEGATIVE (Negative); Occult Blood Urine UA NEGATIVE (Negative); Protein Urine UA NEGATIVE (Negative); Urobilinogen Urine UA 0.2 E.U./dL (0.2)
[2020-06-24 04:24] LABS: Pregnancy Test Urine Negative (Negative)
[2020-06-24 04:28] LABS: UR Morphine/Opiate cutoff 300 Negative (Negative); Ur Creatinine 20 (Normal); Urine Amphetamines Negative (Negative); Urine Barbiturates Negative (Negative); Urine Benzodiazepines Negative (Negative); Urine Cocaine Negative (Negative); Urine MDMA Negative (Negative); Urine Methadone Negative (Negative); Urine Methamphetamines Negative (Negative); Urine Oxycodone Negative (Negative); Urine Phencyclidine Negative (Negative); Urine Tetrahydrocannabinol Negative (Negative); Urine Tricyclic Antidepressant Positive (Negative); Urine pH 5 (Normal)
[2020-06-24 04:35] LABS: Bacteria Urine Few (2-10); Culture Indicated Urine Cult Not Indicated; Squamous Epithelial Cell Urine 1-5 /HPF (0-5/HPF)
[2020-06-24 04:41] LABS: COVID19 -Nasal RAPID Negative (Negative)
--- NOTE | 2020-06-24 07:45 | PC.NURSE ---
patient allowed to sleep, door open, respirations observed, ARTIST AND REPERTOIRE MANAGER monitoring
--- NOTE | 2020-06-24 08:32 | PC.NURSE ---
Dietary brought patient a breakfast tray. She is currently sleeping.
--- NOTE | 2020-06-24 10:15 | PC.NURSE ---
SALES ASSOCIATE awoke patient and is at bedside assessing paitent now.
--- NOTE | 2020-06-24 10:16 | PC.NURSE ---
confirmed with provider, sarwat is to be sent home with home quetiapine which she attempted to overdose on last night. Provider states she is to be sent home with her quetiapine
[2020-06-24 10:20] VITALS: BP 121/82; PULSE 82; RESP 15; O2SAT 99
--- NOTE | 2020-06-24 13:27 | CM.SWNOTE ---
TOBACCO SIZER Note This TOBACCO SIZER requested for consult to assess safety plan for this 54 yo female, arrives by PD, found by spouse after an intentional OD on 10 Seroquel, patient admits to not wanting to wake up. Patient arrived yesterday evening BAL was 159. Dr Mayen has cleared patient medically and requests assist w/dispo and safety planning. Met w/patient, introduced role. Patient lives w/her spouse and 25 yo dtr who has schizoaffective disorder and frequents [facility]. Spouse works nights at [employer]. Patient sits up, makes eye contact, appears stated age, speech and affect WNL, however, she is very lethargic throughout our conversation and downplays the severity of this presentation. Patient has difficulty discussing events or feelings leading up to her OD. Patient admits to being exhausted by her dtr's erratic behaviors and felt overwhelmed last night, states I wanted to feel numb for awhile. Patient and spouse thought dtr was going to leave for college and now she isn't. Patient sees Dr Daniella Liang, psychiatrist, every month and has an appt w/her Friday06.26.20. Patient denies thoughts of SI/HI leading up to this attempt, denies current SI, denies outstanding legal concerns. Prior suicide attempt in the 90's after the of her dtr, states I am pretty sure I was experiencing depression Patient admits to drinking alcohol often, more so when out with friends and I go out a lot and admits to this TOBACCO SIZER her drinking is a problem in her life. Discussed local D+A treatment facility [facility] and patient requested contact information. Suggested inpatient psychiatric stay for stabilization and patient refused, states she is scheduled to get her second COVID-19 vaccine today and needs to be at work on Friday. Suggested [facility]/crisis line call her for supportive call this afternoon ? Patient hesitant, states she and her were planning to go to their older dtr's house this afternoon and she doesn't want to leave her family gathering to take this call. Strongly encouraged patient to consider the severity of the condition she arrived to the ED in...encouraged her to consider accepting help to get her through this emotionally overwhelming time and she agreed to the following: -Call from [facility] from approx [phone] -Making her appt w/ Psychiatrist Friday -Taking the contact information for [facility] Patient does not meet criteria to be detained. Patient wants to [place] ER to make her vaccine appt, is not sure how she will get home. She will place call to her spouse and dtr or walk. Updated ED staff and arranged f/u call though A crisis line. Patient's cell P# [phone] AMISH Mandujano
== END 2020-06-24 10:22 | disposition home or self-care (01) ==
PROVIDERS: Emergency Medicine; Emergency Provider Emergency Medicine; PCP Internal Medicine
DX: T43.592A Poisoning by other antipsychotics and neuroleptics, intentional self-harm, initial encounter (principal); F10.120 Alcohol abuse with intoxication, uncomplicated; Y90.6 Blood alcohol level of 120-199 mg/100 ml; Z20.822 Contact with and (suspected) exposure to COVID-19
CPT/HCPCS: 36415; 80053; 80305; 80320; 80329; 81001; 81025; 83690; 83735; 84443; 85025; 87635; 93005; 93010; 99283; 99284; C9803; G0480

== ENCOUNTER → 2020-07-20 16:57 | Outpatient (CLI) | payer OTHER, SELFPAY ==
[2019-08-27 16:49] VITALS: BMI 30.9
--- NOTE | 2020-07-20 16:58 | DI.RAD.S_ITS ---
PROCEDURE: XR HAND RT MIN 3V INDICATIONS: fall/injury TECHNIQUE: 3 views of the hand(s) acquired. COMPARISON: [facility] [place], CR, XR FINGER(S) RIGHT, 11/10/2018, 16:28. [facility] [place], CR, XR FINGER(S) RIGHT, 03/09/2020, 15:52. FINDINGS: Bones: New sclerotic line noted over the base of the right thumb metacarpal not seen on prior studies. This may represent sequela of remote fracture. No definite acute fractures noted. Moderate polyarticular background are osteoarthritic changes throughout the right hand most severe at the thumb carpometacarpal, metacarpophalangeal, and interphalangeal joints. Moderate degenerative changes of the distal interphalangeal joints of the 2nd and 3rd fingers. Possible periarticular lucencies noted over the head of the 2nd through 4th metacarpals. Carpal bones are normally aligned. No suspicious bony lesions. Soft tissues: No suspicious soft tissue calcifications. IMPRESSION: 1. Linear, sclerotic line seen near the base of the right thumb metacarpal not seen on comparison studies. This is age indeterminate and may represent sequela of remote trauma. Recommend correlation with examination. Otherwise, no definite acute fracture seen. 2. Diffuse background osteoarthritic changes of the right hand. Dictated by: Adam White M.D. on 07/20/2020 at 16:23 Approved by: Adam White M.D. on 07/20/2020 at 16:27
== END ==
PROVIDERS: PCP Internal Medicine; Referring Provider Student in an Organized Health Care Education/Training Program; Visit Provider Student in an Organized Health Care Education/Training Program
DX: S69.91XA Unspecified injury of right wrist, hand and finger(s), initial encounter (principal); M79.641 Pain in right hand; W19.XXXA Unspecified fall, initial encounter
CPT/HCPCS: 73130

== ENCOUNTER 2020-08-13 20:18 | Emergency (ER) | payer OTHER, SELFPAY ==
[2019-08-27 16:49] VITALS: BMI 30.9
[2020-08-13 20:20] VITALS: BP 143/81; PULSE 82; RESP 14; TEMP 37.1; O2SAT 95; BMI 27.4
--- NOTE | 2020-08-13 20:45 | ED_ITS ---
HPI - Psych General Chief Complaint: Psychiatric Symptoms Stated Complaint: YOVANA Time Seen by Provider: 08/13/20 20:34 Source: patient and police Mode of arrival: Ambulatory Limitations: no limitations History of Present Illness HPI Narrative: Patient is a 54-year-old female who was brought in by police under a YOVANA for evaluation. Please was called by the patient's after she apparently made text messages to him staying that she was ?checking out ?and that she had taken extra doses of her medications. I do not have these text messages to evaluate. Per police report she was somewhat reluctant to provide information upon their arrival however did admit to taking extra doses of her medications. She also admits to drinking alcohol. She was evaluated by myself several months ago under very similar circumstances. She spent the night in the emergency department was eventually discharged home after evaluation by social Work. Here in the emergency department she states that she took the extra doses of medication because she needs to sleep at night. She has a history of restless leg syndrome and this is become very intense for her and she has problems sleeping. She does admit to drinking alcohol. Upon my evaluation she denied SI. Related Data Home Medications Medication Instructions Recorded Confirmed lisinopril 40 mg tablet 40 mg PO DAILY 05/20/19 07/20/20 lamotrigine 300 mg tablet,extended 300 mg PO DAILY 09/02/19 07/20/20 release 24 hr pramipexole 3 mg tablet,extended 3 mg PO BEDTIME 09/02/19 07/20/20 release 24 hr quetiapine 200 mg tablet,extended 200 mg PO DAILY 09/02/19 07/20/20 release 24 hr levothyroxine 150 mcg PO DAILY 09/27/19 07/20/20 Previous Rx's Medication Instructions Recorded [testosterone 2%] 1 ml EXT Q DAY #30 gm 03/27/17 Botox 200 unit INJ SEE INSTRUCTIONS #1 05/13/17 vial kaavobfanc-mfmrswcrlkmnm-slhcfwfc 1 cap PO .COMPLEX PRN #20 cap 07/06/18 50 mg-325 mg-40 mg capsule syringe with needle, safety 3 mL #6 each 10/20/18 23 gauge x 1 lovfatjgmd-dddfqjulmrfgj-wkyqoigm 1 tab PO Q6H PRN #20 tab 11/03/18 50 mg-325 mg-40 mg tablet wavkulxqan-nnuahpyrwxuid-qjgaqtaq 1 cap PO Q6H PRN #30 cap 02/16/19 50 mg-325 mg-40 mg capsule fremanezumab-vfrm 225 mg/1.5 mL 225 mg SUBCUT QMONTH #1.5 ml 03/08/19 subcutaneous syringe oxycodone-acetaminophen 5 mg-325 2 tab PO Q4-6H PRN #20 tab 09/27/19 mg tablet testosterone cypionate 200 mg/mL See Rx Instructions .ROUTE 05/15/20 intramuscular oil .COMPLEX #1 ml Allergies Allergy/AdvReac Type Severity Reaction Status Date / Time etodolac [ETODOLAC] Allergy Severe SOB, Verified 07/20/20 17:35 ANAPHYLACTIC morphine [MORPHINE] AdvReac Mild Nausea Verified 07/20/20 17:35 Review of Systems Constitutional Constitutional: Denies fever(s) Cardiovascular Cardiovascular: Denies chest pain and Denies dyspnea Respiratory Respiratory: Denies dyspnea Gastrointestinal Gastrointestinal: Denies abdominal pain Psychiatric Psychiatric: Reports depression Comments: Problem sleeping Hematologic/Lymphatic On Anticoagulants: No Allergic/Immunologic Allergic/Immunologic: Denies urticaria Patient History Medical History (Updated 08/14/20 @ 04:53 by Walt Collazo DO) Abnormal Pap smear of cervix (1994) Anemia (1999) Anxiety (1999) Cervical disc disorder at C5-C6 level with myelopathy Cervical disc disorder at C6-C7 level with myelopathy Cervical dysplasia Chicken pox (1977) Chlamydia (1983) Chronic headaches Depression (1989) Diverticular disease (2014) Foot pain (2000) Fractures (1981) Heavy menstrual period Hemorrhoids (1989) History of use of contraceptive intrauterine device (IUD) (07/2010) Hypothyroidism (~1989) Migraine Painful menstrual periods (1989) Restless legs syndrome (RLS) (2007) Shoulder pain (2013) Surgical History Hx of cholecystectomy (~1998) Normal colonoscopy (2014) Plantar fasciitis (2001) Plantar fasciitis (2004) S/P cervical discectomy Status post cholecystectomy (1998) Status post loop electrosurgical excision procedure (LEEP) of cervix (1995) Status post tubal ligation (1997) Family History Father Age: 84 Alcoholism Emphysema, unspecified Grandmother Diabetes mellitus Mother Age: 82 Diabetes mellitus Thyroid disease COPD (chronic obstructive pulmonary disease) Heart disease Hypertension Emphysema, unspecified Sister Age: 58 Diabetes mellitus Family/Other Diabetes mellitus Thyroid disease Social History household members: spouse Smoking Status: Former smoker alcohol intake: current Smoking Status: Former smoker alcohol intake frequency: a few times a week Alcohol type: beer Substance Use Type: does not use Exam Initial Vital Signs Initial Vital Signs: Vital Signs Temperature 98.7 F 08/13/20 20:20 Pulse Rate 82 08/13/20 20:20 Respiratory Rate 14 08/13/20 20:20 Blood Pressure 143/81 H 08/13/20 20:20 Pulse Oximetry 95 08/13/20 20:20 Const General: cooperative and comfortable HENMT Head: normal to inspection and normocephalic Resp Effort & Inspection: normal respiratory effort Cardio Rate: regular rate Neuro General: patient alert, patient awake and patient oriented x3 Speech: speech normal Extrem General: normal to inspection Psych Appearance: grossly normal Speech and Movement: slowed movement Mood: dysthymic mood Affect: normal affect Attitude: cooperative Thought Content: suicidality Scores GCS Jb coma scale eye opening: Spontaneous [place] coma scale verbal response: Orientated [place] coma scale motor response: Obey commands [place] coma scale total score: 15 Course Orders Ordered: ED Orders 08/13/20 20:49 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 Result diagrams: 08/13/20 21:00 08/13/20 21:00 Labs: Lab Results 08/13/20 08/13/20 08/13/20 Range/Units 21:00 21:00 21:00 WBC 9.4 (4.5-11.0) X10^3/uL RBC 4.41 (4.0-5.2) X10^6/uL Hgb 14.3 (12.0-16.0) g/dL Hct 41.8 (36-46) % MCV 94.8 (80-100) fL MCH 32.4 (26-34) PG MCHC 34.2 (30-36) % RDW 14.8 (11.6-14.8) % Plt Count 237 (150-400) X10^3/uL Neut % (Auto) 76.4 H (50-75) % Lymph % (Auto) 14.7 L (25-40) % [place] % (Auto) 5.0 (3-14) % Eos % (Auto) 3.3 (2-4) % Baso % (Auto) 0.6 (0-2) % Neut # (Auto) 7200 H (6354-0153) /uL Lymph # (Auto) 1400 (7617-0395) /uL Harlan # (Auto) 500 (0-900) /uL Eos # (Auto) 300 (0-450) /uL Baso # (Auto) 100 (0-100) /uL Sodium 142 (137-145) mmol/L Potassium 3.7 (3.4-5.1) mmol/L Chloride 111 H (98-107) mmol/L Carbon Dioxide 23 (22-32) mmol/L BUN 9 (7-17) mg/dL Creatinine 0.72 (0.52-1.04) mg/dL Estimated GFR > 60.0 (>60) mL/min BUN/Creatinine Ratio 12.5 (6-22) Glucose 74 (70-100) mg/dL Calcium 9.4 (8.4-10.2) mg/dL Total Bilirubin 0.4 (0.2-1.3) mg/dL AST 25 (14-36) IU/L ALT 19 (<35) IU/L Alkaline Phosphatase 69 (38-126) U/L Total Protein 7.0 (6.3-8.2) g/dL Albumin 4.0 (3.5-5.0) g/dL Globulin 3.0 (1.7-4.1) g/dL Albumin/Globulin Ratio 1.3 (1.0-2.8) TSH (0.47-4.68) uIU/mL Serum , Qual (Negative) Urine Color Urine Appearance Urine pH (4.5-8.0) Ur Specific [place] (1.000-1.035) Urine Protein (Negative) Urine Glucose (UA) (Negative) g/dL Urine Ketones (NEGATIVE) Urine Occult Blood (Negative) Urine Nitrate (Negative) Urine Bilirubin (NEGATIVE) Urine Urobilinogen (0.2) E.U./dL Ur Leukocyte Esterase (NEGATIVE) Urine RBC (0-5/HPF) Urine WBC (0-5/HPF) Ur Squamous Epith Cells (0-5/HPF) Urine Bacteria (None) Ur Culture Indicated? U Opiates 300ng/mL cut (Negative) Ur Oxycodone Screen (Negative) Urine Methadone Screen (Negative) Acetaminophen < 10 L (10-30) ug/mL Ur Barbiturates Screen (Negative) U Tricyclic Antidepress (Negative) Ur Phencyclidine Scrn (Negative) Ur Amphetamines Screen (Negative) U Methamphetamines Scrn (Negative) Ur MDMA Scrn (Ecstasy) (Negative) U Benzodiazepines Scrn (Negative) [place] 0.8 (0.6-1.2) mmol/L Urine Cocaine Screen (Negative) U Marijuana (THC) Screen (Negative) Ethyl Alcohol 109 H ( - 10) mg/dL 08/13/20 08/13/20 08/13/20 Range/Units 21:00 21:00 22:14 WBC (4.5-11.0) X10^3/uL RBC (4.0-5.2) X10^6/uL Hgb (12.0-16.0) g/dL Hct (36-46) % MCV (80-100) fL MCH (26-34) PG MCHC (30-36) % RDW (11.6-14.8) % Plt Count (150-400) X10^3/uL Neut % (Auto) (50-75) % Lymph % (Auto) (25-40) % [place] % (Auto) (3-14) % Eos % (Auto) (2-4) % Baso % (Auto) (0-2) % Neut # (Auto) (3898-1600) /uL Lymph # (Auto) (3385-7281) /uL Harlan # (Auto) (0-900) /uL Eos # (Auto) (0-450) /uL Baso # (Auto) (0-100) /uL Sodium (137-145) mmol/L Potassium (3.4-5.1) mmol/L Chloride (98-107) mmol/L Carbon Dioxide (22-32) mmol/L BUN (7-17) mg/dL Creatinine (0.52-1.04) mg/dL Estimated GFR (>60) mL/min BUN/Creatinine Ratio (6-22) Glucose (70-100) mg/dL Calcium (8.4-10.2) mg/dL Total Bilirubin (0.2-1.3) mg/dL AST (14-36) IU/L ALT (<35) IU/L Alkaline Phosphatase (38-126) U/L Total Protein (6.3-8.2) g/dL Albumin (3.5-5.0) g/dL Globulin (1.7-4.1) g/dL Albumin/Globulin Ratio (1.0-2.8) TSH 6.69 H (0.47-4.68) uIU/mL Serum , Qual Negative (Negative) Urine Color Yellow Urine Appearance Clear Urine pH 5.5 (4.5-8.0) Ur Specific [place] 1.010 (1.000-1.035) Urine Protein Negative (Negative) Urine Glucose (UA) Negative (Negative) g/dL Urine Ketones Negative (NEGATIVE) Urine Occult Blood Negative (Negative) Urine Nitrate Negative (Negative) Urine Bilirubin Negative (NEGATIVE) Urine Urobilinogen 0.2 (0.2) E.U./dL Ur Leukocyte Esterase Trace H (NEGATIVE) Urine RBC None seen (0-5/HPF) Urine WBC 1-5/hpf (0-5/HPF) Ur Squamous Epith Cells 1-5 /hpf (0-5/HPF) Urine Bacteria Few (2-10) H (None) Ur Culture Indicated? Specimen cultured U Opiates 300ng/mL cut (Negative) Ur Oxycodone Screen (Negative) Urine Methadone Screen (Negative) Acetaminophen (10-30) ug/mL Ur Barbiturates Screen (Negative) U Tricyclic Antidepress (Negative) Ur Phencyclidine Scrn (Negative) Ur Amphetamines Screen (Negative) U Methamphetamines Scrn (Negative) Ur MDMA Scrn (Ecstasy) (Negative) U Benzodiazepines Scrn (Negative) [place] (0.6-1.2) mmol/L Urine Cocaine Screen (Negative) U Marijuana (THC) Screen (Negative) Ethyl Alcohol ( - 10) mg/dL 08/13/20 Range/Units 22:14 WBC (4.5-11.0) X10^3/uL RBC (4.0-5.2) X10^6/uL Hgb (12.0-16.0) g/dL Hct (36-46) % MCV (80-100) fL MCH (26-34) PG MCHC (30-36) % RDW (11.6-14.8) % Plt Count (150-400) X10^3/uL Neut % (Auto) (50-75) % Lymph % (Auto) (25-40) % [place] % (Auto) (3-14) % Eos % (Auto) (2-4) % Baso % (Auto) (0-2) % Neut # (Auto) (6457-0926) /uL Lymph # (Auto) (7722-2044) /uL [place]lan # (Auto) (0-900) /uL Eos # (Auto) (0-450) /uL Baso # (Auto) (0-100) /uL Sodium (137-145) mmol/L Potassium (3.4-5.1) mmol/L Chloride (98-107) mmol/L Carbon Dioxide (22-32) mmol/L BUN (7-17) mg/dL Creatinine (0.52-1.04) mg/dL Estimated GFR (>60) mL/min BUN/Creatinine Ratio (6-22) Glucose (70-100) mg/dL Calcium (8.4-10.2) mg/dL Total Bilirubin (0.2-1.3) mg/dL AST (14-36) IU/L ALT (<35) IU/L Alkaline Phosphatase (38-126) U/L Total Protein (6.3-8.2) g/dL Albumin (3.5-5.0) g/dL Globulin (1.7-4.1) g/dL Albumin/Globulin Ratio (1.0-2.8) TSH (0.47-4.68) uIU/mL Serum , Qual (Negative) Urine Color Urine Appearance Urine pH (4.5-8.0) Ur Specific [place] (1.000-1.035) Urine Protein (Negative) Urine Glucose (UA) (Negative) g/dL Urine Ketones (NEGATIVE) Urine Occult Blood (Negative) Urine Nitrate (Negative) Urine Bilirubin (NEGATIVE) Urine Urobilinogen (0.2) E.U./dL Ur Leukocyte Esterase (NEGATIVE) Urine RBC (0-5/HPF) Urine WBC (0-5/HPF) Ur Squamous Epith Cells (0-5/HPF) Urine Bacteria (None) Ur Culture Indicated? U Opiates 300ng/mL cut Negative (Negative) Ur Oxycodone Screen Negative (Negative) Urine Methadone Screen Negative (Negative) Acetaminophen (10-30) ug/mL Ur Barbiturates Screen Negative (Negative) U Tricyclic Antidepress Positive H (Negative) Ur Phencyclidine Scrn Negative (Negative) Ur Amphetamines Screen Negative (Negative) U Methamphetamines Scrn Negative (Negative) Ur MDMA Scrn (Ecstasy) Negative (Negative) U Benzodiazepines Scrn Negative (Negative) [place] (0.6-1.2) mmol/L Urine Cocaine Screen Negative (Negative) U Marijuana (THC) Screen Negative (Negative) Ethyl Alcohol ( - 10) mg/dL Urine Dip Bedside Urine Glucose Negative Bedside Urine Bilirubin - Negative Bedside Urine Ketone - Negative Urine Specific [place] 1.015 Bedside Urine Occult Blood - Negative Bedside Urine pH 6.0 Bedside Urine Protein - Negative Bedside Urine Urobilinogen - Negative Bedside Urine Nitrite - Negative Bedside Urine Leukocytes - Negative Esterase MDM Narrative Medical decision making narrative: Patient states she took 5 tablets instead of 3 tablets of her lithium. She also took 2 extra tablets of her Mirapex and 2 extra tablets of her Seroquel. Patient did remain in the emergency department overnight and did sleep somewhat. Upon re-evaluation in the morning she was alert oriented x3. Clinically sober. Ambulated around the room. Tolerating oral intake. In my opinion has capacity make decisions. She states she was not suicidal. She states she does know why she was brought in last night and is because she took the extra medica tion and again stated that it was because she wanted to sleep. Offered to have her stay in the emergency department to speak with social work later today however she stated that she needed to get home in order to go to work today. Will discharge home. She was given return precautions. She expressed understanding and agreement. Discharge Plan Departure Patient Disposition: Home Clinical Impression: Medication overdose Instructions: Taking Prescription Medications Activity Restrictions/Additional Instructions: I recommend that you take your medications as directed. It is important that you do not take more than which you are prescribed. If you feel like your medications are not treating her conditions appropriately you need to talk with your prescribing doctor about potentially changing any medications. Return to the emergency department for any new or worsening symptoms Prescriptions: No Action [testosterone 2%] 1 ml EXT Q DAY Qty: 30 RF: 0 Botox 200 UNIT recon soln 200 unit INJ SEE INSTRUCTIONS Qty: 1 RF: 3 eupmmqivkz-yctweatiwqbta-dbva 50-325-40 mg capsule 1 cap PO .COMPLEX PRN (Reason: headache) Qty: 20 RF: 5 (DME) BD Safety-Claritza Detachable Needl 3 mL 23 gauge x 1 syringe See Dose Instructions .ROUTE .MEDSUPPLY Qty: 6 RF: 1 Ajovy Syringe 225 mg/1.5 mL syringe 225 mg SUBCUT QMONTH Qty: 1.5 RF: 11 oxycodone-acetaminophen 5-325 mg tablet 2 tab PO Q4-6H PRN (Reason: pain) Qty: 20 RF: 0 testosterone cypionate 200 mg/mL oil See Rx Instructions .ROUTE .COMPLEX Qty: 1 RF: 5 quetiapine 200 mg tablet extended release 24 hr 200 mg PO DAILY RF: 0 lamotrigine 300 mg tablet extended release 24hr 300 mg PO DAILY RF: 0 pramipexole [Mirapex ER] 3 mg tablet extended release 24 hr 3 mg PO BEDTIME RF: 0 levothyroxine 150 mcg Tablet 150 mcg PO DAILY RF: 0 qzebkuisqz-yfjzsxboowudw-opgw 50-325-40 mg capsule 1 cap PO Q6H PRN (Reason: pain) Qty: 30 RF: 0 lisinopril 40 mg tablet 40 mg PO DAILY RF: 0 zsspvvhymr-xcqxhksieibsp-qrhr 50-325-40 mg tablet 1 tab PO Q6H PRN (Reason: pain) Qty: 20 RF: 0 Referrals: Donya Shea ARNP [Primary Care Provider] -
[2020-08-13 21:13] LABS: Add Manual Diff / Slide Review NO; Basophils Absolute Auto 100 /uL (0-100); Basophils Percent Auto 0.6 % (0-2); Eosinophils Absolute Auto 300 /uL (0-450); Eosinophils Percent Auto 3.3 % (2-4); Hematocrit 41.8 % (36-46); Hemoglobin 14.3 g/dL (12.0-16.0); Lymphocytes Absolute Auto 1400 /uL (1100-4500); Lymphocytes Percent Auto 14.7 % (25-40); Mean Corpuscular HGB Conc 34.2 % (30-36); Mean Corpuscular Hemoglobin 32.4 PG (26-34); Mean Corpuscular Volume 94.8 fL (80-100); Monocytes Absolute Auto 500 /uL (0-900); Neutrophils Absolute Auto 7200 /uL (1500-7000); Neutrophils Percent Auto 76.4 % (50-75); Platelet Count 237 X10^3/uL (150-400); Red Blood Cell Count 4.41 X10^6/uL (4.0-5.2); Red Cell Distribution Width 14.8 % (11.6-14.8); White Blood Cell Count 9.4 X10^3/uL (4.5-11.0)
[2020-08-13 21:26] LABS: Acetaminophen < 10 ug/mL (10-30); Alanine Aminotransferase 19 IU/L (<35); Albumin Globulin Ratio 1.3 (1.0-2.8); Alkaline Phosphatase 69 U/L (38-126); Aspartate Aminotransferase 25 IU/L (14-36); BUN Creatinine Ratio 12.5 (6-22); Bilirubin Total 0.4 mg/dL (0.2-1.3); Blood Urea Nitrogen 9 mg/dL (7-17); Calcium 9.4 mg/dL (8.4-10.2); Carbon Dioxide 23 mmol/L (22-32); Chloride 111 mmol/L (98-107); Estimated Glomerular Filt Rate > 60.0 mL/min (>60); Ethanol (ETOH) 109 mg/dL; Glucose 74 mg/dL (70-100); HEMOLYSIS < 15 (0-50); Potassium 3.7 mmol/L (3.4-5.1); Sodium 142 mmol/L (137-145)
[2020-08-13 21:28] LABS: Lithium 0.8 mmol/L (0.6-1.2)
[2020-08-13 21:30] LABS: Pregnancy Test Serum,Qual Negative (Negative)
[2020-08-13 22:03] LABS: Thyroid Stimulating Hormone 6.69 uIU/mL (0.47-4.68)
[2020-08-13 22:23] LABS: RBC Urine None Seen (0-5/HPF)
[2020-08-13 22:24] LABS: Appearance Urine UA CLEAR; Bilirubin Urine UA NEGATIVE (NEGATIVE); Color Urine UA YELLOW; Glucose Urine UA NEGATIVE (Negative); Ketones Urine UA NEGATIVE (NEGATIVE); Leukocyte Esterase Urine UA TRACE (NEGATIVE); Nitrite Urine UA NEGATIVE (Negative); Occult Blood Urine UA NEGATIVE (Negative); Protein Urine UA NEGATIVE (Negative); Urobilinogen Urine UA 0.2 E.U./dL (0.2)
[2020-08-13 22:29] LABS: UR Morphine/Opiate cutoff 300 Negative (Negative); Ur Creatinine Normal (Normal); Ur Specific Gravity Normal (Normal); Urine Amphetamines Negative (Negative); Urine Barbiturates Negative (Negative); Urine Benzodiazepines Negative (Negative); Urine Cocaine Negative (Negative); Urine MDMA Negative (Negative); Urine Methadone Negative (Negative); Urine Methamphetamines Negative (Negative); Urine Oxycodone Negative (Negative); Urine Phencyclidine Negative (Negative); Urine Tetrahydrocannabinol Negative (Negative); Urine Tricyclic Antidepressant Positive (Negative); Urine pH Normal (Normal)
[2020-08-13 22:33] LABS: pH Urine UA 5.5 (4.5-8.0)
[2020-08-13 22:34] LABS: Bacteria Urine Few (2-10); Culture Indicated Urine Specimen Cultured; Squamous Epithelial Cell Urine 1-5 /HPF (0-5/HPF); WBC Urine 1-5/HPF (0-5/HPF)
[2020-08-14 01:24] VITALS: BP 133/76; PULSE 88; RESP 16; TEMP 36.6; O2SAT 96
[2020-08-14 05:10] VITALS: BP 126/77; PULSE 87; RESP 18; O2SAT 97
== END 2020-08-14 05:10 | disposition home or self-care (01) ==
PROVIDERS: Emergency Provider Emergency Medicine; PCP Internal Medicine
DX: T56.894A Toxic effect of other metals, undetermined, initial encounter (principal); F32.9 Major depressive disorder, single episode, unspecified
CPT/HCPCS: 36415; 80053; 80178; 80305; 80320; 80329; 81001; 81003; 84443; 84703; 85025; 87086; 99284; G0480

== ENCOUNTER → 2020-08-31 15:34 | Outpatient (CLI) | payer OTHER, SELFPAY ==
[2019-08-27 16:49] VITALS: BMI 30.9
--- NOTE | 2020-08-31 15:36 | DI.MRI.S_ITS ---
PROCEDURE: MR HAND RT WO CON INDICATIONS: Pain in right hand TECHNIQUE: Noncontrast coronal T1 spin echo and T2 fast spin echo with fat saturation, axial proton density fast spin echo and T2 fast spin echo with fat saturation, sagittal T1 spin echo and STIR through the hand and fingers. COMPARISON: [facility], CR, XR HAND RT MIN 3V, 07/20/2020, 16:56. FINDINGS: Image quality: Excellent. Bones: The bones are normally aligned, without marrow contusions or fractures. Postsurgical changes are noted involving 5th metacarpal base from prior surgery. Mild osteoarthritic changes in 1st MCP joint, 1st interphalangeal joint, 2nd through 5th PIP and DIP joints are seen. Nonspecific subcortical cyst formation scattered in carpal bones, 3rd , 4th and 5th metacarpal heads, and 2nd proximal phalangeal base are seen. No intra-osseous lesions. Interphalangeal joint(s): The accessory and proper collateral ligaments appear intact. The volar plate demonstrates normal morphology. The extensor central slips appear intact on sagittal images. Metacarpophalangeal joint(s): There is significant thickening involving radial collateral ligaments of the 3rd and 4th MCP joints. The volar plate and adjacent deep transverse metacarpal ligaments are grossly intact. Attenuated appearance involving radial sagittal band of extensor velez of the 3rd digit concerning for at least partial-thickness tear. Extensor apparatus: The central slips insert normally on the middle phalangeal base. The conjoint and terminal tendons insert normally on the distal phalangeal bases. More proximal portions of the extensor tendons also appear normal. Flexor apparatus: The flexor digitorum superficialis and profundus tendons both appear intact. All annular and cruciform pulleys appear intact, without adjacent soft tissue edema. Soft tissues: Soft tissue edema over dorsum of right hand at the level of metacarpal bones particularly over 4th metacarpal shaft is seen. No discrete drainable fluid collection is seen. Mild soft tissue edema surrounding 4th and 3rd metacarpal shafts are noted. Small amount of fluid is seen distending 2nd through 4th MCP joint capsule. Visualized muscles demonstrate normal bulk and internal signal. No intramuscular masses identified. No ganglion cysts. IMPRESSION: 1. Postsurgical changes involving 1st metacarpal base. Normal alignment of right hand. 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 2. Nonspecific intraosseous cyst formation in the carpal bones, metacarpal heads and 2nd proximal phalangeal base, erosion secondary to inflammatory arthropathy cannot be entirely excluded. 3. Fluid distending 2nd through 4th MCP joints. Soft tissue edema over dorsum of right hand at the level of metacarpal bones particularly over 4th and 3rd metacarpal shaft. 4. Suggestion of sprain/low to moderate grade partial-thickness tear involving radial collateral ligaments of 3rd and 4th MCP joints. There is also suggestion of at least moderate grade partial-thickness tear involving radial sagittal band of 3rd MCP joint extensor velez. 5. Extensor and flexor tendons are grossly intact. Dictated by: Jb Medrano M.D. on 09/01/2020 at 14:49 Approved by: Jb Medrano M.D. on 09/01/2020 at 14:59
== END ==
PROVIDERS: PCP Internal Medicine; Referring Provider Orthopaedic Surgery; Visit Provider Orthopaedic Surgery
DX: M79.641 Pain in right hand (principal)
CPT/HCPCS: 73218

== ENCOUNTER → 2020-12-21 10:53 | Outpatient (CLI) | payer OTHER, SELFPAY ==
[2019-08-27 16:49] VITALS: BMI 30.9
[2020-12-22 15:16] LABS: Candida species Negative (Negative); Gardnerella vaginalis Negative (Negative); Trichomoas vaginalis Positive (Negative)
== END ==
PROVIDERS: PCP Internal Medicine; Visit Provider Specialist
DX: N90.89 Other specified noninflammatory disorders of vulva and perineum (principal)
CPT/HCPCS: 87480; 87510; 87660

== ENCOUNTER → 2021-03-09 08:57 | Outpatient (CLI) | payer OTHER, SELFPAY ==
[2019-08-27 16:49] VITALS: BMI 30.9
[2021-03-10 06:18] LABS: Candida species Negative (Negative); Gardnerella vaginalis Positive (Negative); Trichomoas vaginalis Negative (Negative)
== END ==
PROVIDERS: PCP Internal Medicine; Visit Provider Obstetrics & Gynecology
DX: N76.0 Acute vaginitis (principal); B96.89 Other specified bacterial agents as the cause of diseases classified elsewhere; Z20.2 Contact with and (suspected) exposure to infections with a predominantly sexual mode of transmission
CPT/HCPCS: 87480; 87510; 87660

== ENCOUNTER → 2022-06-05 16:09 | Outpatient (CLI) | payer OTHER, SELFPAY ==
[2019-08-27 16:49] VITALS: BMI 30.9
[2022-06-05 17:00] LABS: Lithium 0.5 mmol/L (0.6-1.2)
[2022-06-05 17:03] LABS: Alanine Aminotransferase 24 IU/L (<35); Albumin 4.4 g/dL (3.5-5.0); Albumin Globulin Ratio 1.5 (1.0-2.8); Alkaline Phosphatase 76 U/L (38-126); Aspartate Aminotransferase 21 IU/L (14-36); BUN Creatinine Ratio 18.5 (6-22); Bilirubin Total 0.8 mg/dL (0.2-1.3); Blood Urea Nitrogen 15 mg/dL (7-17); Calcium 9.6 mg/dL (8.4-10.2); Carbon Dioxide 30 mmol/L (22-32); Chloride 99 mmol/L (98-107); Estimated Glomerular Filt Rate > 60 mL/min (>60); Glucose 93 mg/dL (70-100); HEMOLYSIS < 15 (0-50); Potassium 3.7 mmol/L (3.4-5.1); Sodium 136 mmol/L (137-145); Total Protein 7.4 g/dL (6.3-8.2)
[2022-06-05 17:34] LABS: TSH w/ Reflex to FT4 1.28 uIU/mL (0.47-4.68)
== END ==
PROVIDERS: PCP Internal Medicine; Referring Provider Internal Medicine; Visit Provider Internal Medicine
DX: I10 Essential (primary) hypertension (principal); E03.9 Hypothyroidism, unspecified; Z79.899 Other long term (current) drug therapy
CPT/HCPCS: 36415; 80053; 80178; 84443

== ENCOUNTER → 2022-11-09 17:08 | Outpatient (CLI) | payer OTHER, SELFPAY ==
[2019-08-27 16:49] VITALS: BMI 30.9
== END ==
PROVIDERS: PCP Internal Medicine; Visit Provider Physician Assistant
DX: N89.8 Other specified noninflammatory disorders of vagina (principal); N90.89 Other specified noninflammatory disorders of vulva and perineum
CPT/HCPCS: 87086; 87210

== ENCOUNTER → 2022-11-10 11:24 | Outpatient (CLI) | payer OTHER, SELFPAY ==
[2019-08-27 16:49] VITALS: BMI 30.9
[2022-11-10 13:45] LABS: Urine N gonorrhoeae NOT DETECTED
[2022-11-10 13:49] LABS: Urine Chlamydia NOT DETECTED
== END ==
PROVIDERS: PCP Internal Medicine; Visit Provider Physician Assistant
DX: N89.8 Other specified noninflammatory disorders of vagina (principal); N90.89 Other specified noninflammatory disorders of vulva and perineum; Z20.2 Contact with and (suspected) exposure to infections with a predominantly sexual mode of transmission
CPT/HCPCS: 87491; 87591

== ENCOUNTER → 2022-11-29 17:03 | Outpatient (CLI) | payer OTHER, SELFPAY ==
[2022-11-19 17:15] VITALS: BMI 30.9
[2022-12-02 13:09] LABS: Candida species Negative (Negative); Gardnerella vaginalis Negative (Negative); Trichomoas vaginalis Positive (Negative)
== END ==
PROVIDERS: PCP Internal Medicine; Visit Provider Obstetrics & Gynecology
DX: N90.89 Other specified noninflammatory disorders of vulva and perineum (principal)
CPT/HCPCS: 87255; 87480; 87510; 87660

== ENCOUNTER → 2023-10-06 17:33 | Outpatient (CLI) | payer OTHER, SELFPAY ==
[2022-11-19 17:15] VITALS: BMI 30.9
== END ==
PROVIDERS: PCP Internal Medicine; Visit Provider Nurse Practitioner Family
DX: R30.0 Dysuria (principal)
CPT/HCPCS: 87077; 87086

== ENCOUNTER 2023-10-21 02:25 | Emergency (ER) | payer OTHER, SELFPAY ==
[2022-11-19 17:15] VITALS: BMI 30.9
[2023-10-21 02:22] VITALS: BP 167/89; PULSE 72; RESP 18; TEMP 35.8; O2SAT 100; BMI 25.4
--- NOTE | 2023-10-21 07:26 | ED.BACK ---
HPI - Back Pain/Injury General Chief Complaint: Back Pain/Injury Stated Complaint: Backpain Source: patient History of Present Illness HPI Narrative: Patient left without being seen by provider Related Data Home Medications Medication Instructions Recorded Confirmed lamotrigine 300 mg tablet,extended 300 mg PO DAILY 09/02/19 10/06/23 release 24 hr pramipexole 3 mg tablet,extended 3 mg PO BEDTIME 09/02/19 11/29/22 release 24 hr (Mirapex ER) quetiapine 200 mg tablet,extended 200 mg PO DAILY 09/02/19 10/06/23 release 24 hr levothyroxine 150 mcg tablet 150 mcg PO DAILY 09/27/19 10/06/23 propranolol 40 mg tablet 20 mg PO BID 12/21/20 10/06/23 Previous Rx's Medication Instructions Recorded syringe with needle, safety 3 mL #6 ea 12/29/20 23 gauge x 1 (BD Safety-Claritza Detachable Needle) metronidazole 0.75 % (37.5 mg/5 1 appful vaginal DAILY 5 days #70 03/14/21 gram) vaginal gel (Metrogel grams Vaginal) Allergies Allergy/AdvReac Type Severity Reaction Status Date / Time etodolac [ETODOLAC] Allergy Severe SOB, Verified 10/06/23 17:21 ANAPHYLACTIC morphine [MORPHINE] AdvReac Mild Nausea Verified 10/06/23 17:21 Patient History Medical History (Updated 10/21/23 @ 05:46 by Radha Bustos RN) Cervical disc disorder at C5-C6 level with myelopathy Cervical disc disorder at C6-C7 level with myelopathy Cervical dysplasia Restless legs syndrome (RLS) (2007) Migraine Chronic headaches Anemia (1999) History of use of contraceptive intrauterine device (IUD) (07/2010) Chicken pox (1977) Anxiety (1999) Depression (1989) Shoulder pain (2013) Fractures (1981) Foot pain (2000) Painful menstrual periods (1989) Heavy menstrual period Chlamydia (1983) Abnormal Pap smear of cervix (1994) Hypothyroidism (~1989) Hemorrhoids (1989) Diverticular disease (2014) Surgical History S/P cervical discectomy Hx of cholecystectomy (~1998) Normal colonoscopy (2014) Plantar fasciitis (2004) Plantar fasciitis (2001) Status post loop electrosurgical excision procedure (LEEP) of cervix (1995) Status post tubal ligation (1997) Status post cholecystectomy (1998) Family History Father Age: 87 Alcoholism Emphysema, unspecified Grandmother Diabetes mellitus Mother Age: 85 Diabetes mellitus Thyroid disease COPD (chronic obstructive pulmonary disease) Heart disease Hypertension Emphysema, unspecified Sister Age: 61 Diabetes mellitus Family/Other Diabetes mellitus Thyroid disease Social History household members: spouse Smoking Status: Former smoker alcohol intake: current Smoking Status: Former smoker alcohol intake frequency: a few times a week Alcohol type: beer Substance Use Type: does not use Exam Initial Vital Signs Initial Vital Signs: Vital Signs Temperature 96.5 F L 10/21/23 02:22 Pulse Rate 72 10/21/23 02:22 Respiratory Rate 18 10/21/23 02:22 Blood Pressure 167/89 H 10/21/23 02:22 Pulse Oximetry 100 10/21/23 02:22 Oxygen Delivery Method Room Air 10/21/23 02:22 Course Vital Signs Vital signs: Vital Signs - 8 hr 10/21/23 02:22 Temperature 96.5 F L Pulse Rate 72 Respiratory Rate 18 Blood Pressure 167/89 H Pulse Oximetry 100 Oxygen Delivery Method Room Air Discharge Plan Departure Patient Disposition: Left Without Being Seen Clinical Impression: Patient left after triage Prescriptions: No Action (DME) BD Safety-Claritza Detachable Needl 3 mL 23 gauge x 1 syringe See Dose Instructions .ROUTE .MEDSUPPLY Qty: 6 1RF Dose Instruction: As directed Rx Instructions: As directed for use with monthly testosterone injection. metronidazole [Metrogel Vaginal] 0.75 % gel 1 appful vaginal DAILY 5 Days Qty: 70 3RF quetiapine 200 mg tablet extended release 24 hr 200 mg PO DAILY lamotrigine 300 mg tablet extended release 24hr 300 mg PO DAILY pramipexole [Mirapex ER] 3 mg tablet extended release 24 hr 3 mg PO BEDTIME Patient Comments: 1-2 tabs propranolol 40 mg tablet 20 mg PO BID levothyroxine 150 mcg Tablet 150 mcg PO DAILY
== END 2023-10-21 05:15 | disposition left against medical advice (07) ==
PROVIDERS: Emergency Provider Emergency Medicine; PCP Internal Medicine
CPT/HCPCS: 99281

== ENCOUNTER → 2023-10-21 17:35 | Outpatient (CLI) | payer OTHER, SELFPAY ==
[2022-11-19 17:15] VITALS: BMI 30.9
--- NOTE | 2023-10-21 17:36 | DI.RAD.S_ITS ---
PROCEDURE: XR LUMBAR SPINE MIN 4V INDICATIONS: LBP, lumbar radiculopathy TECHNIQUE: 5 views of the lumbar spine acquired, including flexion and extension views. COMPARISON: MR, MR LUMBAR SPINE WO CON, 01/22/2018, 11:42. FINDINGS: Bones: 5 nonrib-bearing vertebrae are present. There is rightward scoliotic curvature. Multilevel degenerative disc space narrowing is present most prominent L4-5, L5-S1. Foraminal narrowing is most prominent at L2-3, L3-4. No vertebral body compression fractures. No suspicious bony lesions. Soft tissues: Overlying bowel gas pattern is normal. No suspicious soft tissue calcifications. Flexion/extension: There is decreased range of motion, with preserved normal alignment. IMPRESSION: Scoliotic curvature with multilevel degenerative change. Dictated by: Jojo Jennings M.D. on 10/21/2023 at 18:10 Approved by: Jojo Jennings M.D. on 10/21/2023 at 18:11
== END ==
PROVIDERS: PCP Internal Medicine; Referring Provider Physician Assistant Surgical; Visit Provider Physician Assistant Surgical
DX: M47.816 Spondylosis without myelopathy or radiculopathy, lumbar region (principal); M54.50 Low back pain, unspecified; M41.9 Scoliosis, unspecified
CPT/HCPCS: 72110

== ENCOUNTER → 2023-12-27 09:25 | Outpatient (CLI) | payer OTHER, SELFPAY ==
[2022-11-19 17:15] VITALS: BMI 30.9
[2023-12-27 09:53] LABS: Add Manual Diff / Slide Review NO; Basophils Absolute Auto 100 /uL (0-100); Basophils Percent Auto 0.7 % (0-2); Eosinophils Absolute Auto 400 /uL (0-450); Eosinophils Percent Auto 5.6 % (2-4); Hematocrit 38.4 % (36-46); Hemoglobin 12.9 g/dL (12.0-16.0); Lymphocytes Absolute Auto 1500 /uL (1100-4500); Lymphocytes Percent Auto 18.7 % (25-40); Mean Corpuscular HGB Conc 33.7 % (30-36); Mean Corpuscular Hemoglobin 32.2 PG (26-34); Mean Corpuscular Volume 95.6 fL (80-100); Monocytes Absolute Auto 500 /uL (0-900); Monocytes Percent Auto 6.8 % (3-14); Neutrophils Absolute Auto 5300 /uL (1500-7000); Neutrophils Percent Auto 68.2 % (50-75); Platelet Count 236 X10^3/uL (150-400); Red Blood Cell Count 4.02 X10^6/uL (4.0-5.2); White Blood Cell Count 7.8 X10^3/uL (4.5-11.0)
[2023-12-27 10:04] LABS: Hemoglobin A1C% w Est Avg Glu 4.9 % (4.0-6.0)
[2023-12-27 10:10] LABS: Alanine Aminotransferase 17 IU/L (<35); Alkaline Phosphatase 59 U/L (38-126); Aspartate Aminotransferase 22 IU/L (14-36); BUN Creatinine Ratio 20.8 (6-22); Bilirubin Total 0.7 mg/dL (0.2-1.3); Blood Urea Nitrogen 15 mg/dL (7-17); Carbon Dioxide 25 mmol/L (22-32); Estimated Glomerular Filt Rate > 60 mL/min (>60); HEMOLYSIS < 15 (0-50)
[2023-12-27 10:13] LABS: Lithium 1.1 mmol/L (0.6-1.2)
[2023-12-27 10:14] LABS: Albumin 3.9 g/dL (3.5-5.0); Albumin Globulin Ratio 1.4 (1.0-2.8); Calcium 9.3 mg/dL (8.4-10.2); Chloride 109 mmol/L (98-107); Cholesterol 164 mg/dL (140-199); Globulin 2.8 g/dL (1.7-4.1); Glucose 93 mg/dL (70-100); HDL Cholesterol 90 mg/dL (40-60); LDL Cholesterol Calculated 63 mg/dL (<100); Potassium 4.2 mmol/L (3.4-5.1); Sodium 138 mmol/L (137-145); Total Protein 6.7 g/dL (6.3-8.2); Triglycerides 54 mg/dL (35-150)
== END ==
PROVIDERS: PCP Internal Medicine; Referring Provider Psychiatry & Neurology Psychiatry; Visit Provider Psychiatry & Neurology Psychiatry
DX: Z79.899 Other long term (current) drug therapy (principal)
CPT/HCPCS: 36415; 80053; 80061; 80178; 83036; 84443; 85025

== ENCOUNTER → 2024-01-28 15:10 | Outpatient (CLI) | payer OTHER, SELFPAY ==
[2022-11-19 17:15] VITALS: BMI 30.9
--- NOTE | 2024-01-28 15:11 | DI.MG.S_ITS ---
BILATERAL DIGITAL SCREENING MAMMOGRAM 3D/2D WITH CAD: 01/28/2024 CLINICAL: Routine screening. Comparison is made to exams dated: 07/11/2018 mammogram, 06/04/2017 mammogram, 05/17/2016 mammogram, and 03/29/2015 mammogram - [facility]. There are scattered areas of fibroglandular density (category b / 25%-50% glandular tissue). Current study was also evaluated with a Computer Aided Detection (CAD) system. No significant masses, calcifications, or other findings are seen in either breast. There has been no significant interval change. IMPRESSION: NEGATIVE There is no mammographic evidence of malignancy. A 1 year screening mammogram is recommended. Based on the Tyrer Cuzick model (a risk assessment model) the patient's lifetime risk is 6.8% and her 10 year risk is 2.3%. According to the ACR, ACS, and NCCN guidelines, an annual breast MRI exam along with mammogram is recommended if the patient's lifetime risk is 20% or greater. This exam was interpreted at Station ID: [id number]. NOTE: For mammograms, a report in lay terms will be sent to the patient. Approximately 15% of breast malignancies will not be visualized mammographically. In the management of a palpable breast mass, a negative mammogram must not discourage biopsy of a clinically suspicious lesion. Electronically Signed By: Reuben pedroza/jing:01/29/2024 10:45:28 copy to: Hebert Vidal letter sent: Normal Exam ACR BI-RADS Category 1: Negative
== END ==
PROVIDERS: PCP Internal Medicine; Referring Provider Internal Medicine; Visit Provider Internal Medicine
DX: Z12.31 Encounter for screening mammogram for malignant neoplasm of breast (principal)
CPT/HCPCS: 77063; 77067

== ENCOUNTER → 2024-01-28 15:11 | Outpatient (CLI) | payer OTHER, SELFPAY ==
[2022-11-19 17:15] VITALS: BMI 30.9
--- NOTE | 2024-01-28 15:12 | DI.MRI.S_ITS ---
PROCEDURE: MR LUMBAR SPINE WO CON INDICATIONS: progressive scoliosis TECHNIQUE: Noncontrast sagittal T1 spin echo and T2 fast echo, sagittal STIR, and T2 fast spin echo through the lumbar spine. In cases with scoliosis, additional coronal T2 fast spin echo may be performed. COMPARISON: [facility], CR, XR LUMBAR SPINE MIN 4V, 10/21/2023, 17:41. [facility], MR, MR LUMBAR SPINE WO CON, 01/22/2018, 11:42. FINDINGS: Image quality: Excellent. Alignment and Curvature: There is powa-gv-usyzmarz rightward curvature of lumbar spine with apex at L2 level Bone Marrow: There is no marrow edema. No acute vertebral body compression fractures. Spinal Cord: Conus medullaris terminates at the L1 level. Visualized cord demonstrates normal signal and size. Paraspinous Soft Tissues: No paravertebral masses. T12-L1: There is near complete loss of disc height and disc desiccation. Diffuse disc bulge and bilateral facet arthrosis is seen with mild central canal stenosis and left-sided neural foraminal narrowing. L1-L2: There is loss of disc height and disc desiccation. Broad-based disc bulge and superimposed central to left-sided disc herniation and annulus tear with bilateral facet arthrosis is seen causing mild central canal stenosis and moderate left-sided neural foraminal narrowing. L2-L3: Loss of disc height and disc desiccation is seen. Broad-based disc bulge and bilateral facet arthrosis with mild central canal stenosis and psyi-bf-vcvivcbk left-sided neural foraminal narrowing. Bulging disc likely contacting left L2 nerve root. L3-L4: There is disc desiccation and loss of disc height. Broad-based disc bulge and bilateral facet arthrosis with hypertrophy of ligamentum flavum causing moderate central canal stenosis and moderate to severe bilateral neural foraminal narrowing. Bulging disc likely contacting bilateral L3 nerve roots. L4-L5: There is loss of disc height and disc desiccation. Broad-based disc bulge and bilateral facet arthrosis with hypertrophy of ligamentum flavum . There is iazc-hm-fwtxbljw central canal stenosis, severe right-sided neural foraminal narrowing and moderate left-sided neural foraminal narrowing. Bulging disc is seen contacting bilateral L4 nerve roots. L5-S1: There is loss of disc height and disc desiccation. Broad-based disc bulge and bilateral facet arthrosis without significant central canal stenosis. Mild left-sided neural foraminal narrowing is seen. Bulging disc is seen contacting left L5 nerve root. IMPRESSION: 1. Icpk-ai-hrfzfbsy dextroscoliosis of thoracolumbar spine with apex at L2 level. No marrow edema. No acute compression fracture. 2. Degenerative disc disease throughout lumbar spine causing various degrees of central canal stenosis and bilateral neural foraminal narrowing more notably at L3-4 and L4-5 levels as described above. Dictated by: Jb Medrano M.D. on 01/28/2024 at 16:27 Approved by: Jb Medrano M.D. on 01/28/2024 at 16:32
== END ==
PROVIDERS: PCP Internal Medicine; Referring Provider Physical Medicine & Rehabilitation; Visit Provider Physical Medicine & Rehabilitation
DX: M41.9 Scoliosis, unspecified (principal); M51.369 Other intervertebral disc degeneration, lumbar region without mention of lumbar back pain or lower extremity pain; M51.379 Other intervertebral disc degeneration, lumbosacral region without mention of lumbar back pain or lower extremity pain; M48.061 Spinal stenosis, lumbar region without neurogenic claudication; M48.07 Spinal stenosis, lumbosacral region
CPT/HCPCS: 72148

== ENCOUNTER → 2024-03-08 09:01 | Outpatient (CLI) | payer OTHER, SELFPAY ==
[2022-11-19 17:15] VITALS: BMI 30.9
--- NOTE | 2024-03-08 09:02 | DI.RAD.S_ITS ---
PROCEDURE: XR CERVICAL SPINE 4V OR 5V INDICATIONS: Cervical myelopathy TECHNIQUE: 5 views of the cervical spine acquired. COMPARISON: [facility], CR, XR CERVICAL SPINE 2V OR 3V, 05/19/2018, 8:04. FINDINGS: Bones: Post fusion changes are noted at C5-6 and C6-7 levels. Surgical hardware in their expected positions. No gross hardware loosening or failure. Loss of disc height, degenerative endplate changes and bilateral uncovertebral hypertrophic changes are noted at C3-4, C4-5 and C7-T1 levels. No fractures or dislocations to the T1 level. Oblique images demonstrate bilateral bony foraminal stenosis at C4-5 through C6-7 levels. Soft tissues: No prevertebral soft tissue swelling. IMPRESSION: Postfusion changes at C5-6 and C6-7 levels. No acute fracture or dislocation. No gross hardware loosening or failure. Degenerative disc disease throughout cervical spine. Suggestion of bilateral bony foraminal stenosis at C4-5 through C6-7 levels seen on oblique views. Dictated by: Jb Medrano M.D. on 03/08/2024 at 13:17 Approved by: Jb Medrano M.D. on 03/08/2024 at 13:19
== END ==
PROVIDERS: PCP Internal Medicine; Referring Provider Physical Medicine & Rehabilitation; Visit Provider Physical Medicine & Rehabilitation
DX: M50.01 Cervical disc disorder with myelopathy, high cervical region (principal); Z98.1 Arthrodesis status
CPT/HCPCS: 72050

== ENCOUNTER → 2024-03-19 16:25 | Outpatient (CLI) | payer OTHER, SELFPAY ==
[2022-11-19 17:15] VITALS: BMI 30.9
--- NOTE | 2024-03-19 16:26 | DI.MRI.S_ITS ---
PROCEDURE: MR CERVICAL SPINE WO CON INDICATIONS: Cervical myelopathy TECHNIQUE: Noncontrast sagittal T1 spin echo and T2 fast spin echo, sagittal STIR, foraminal oblique sagittal T2 fast spin echo, and axial gradient echo or T2 fast spin echo through the cervical spine. COMPARISON: [facility], MR, C-SPINE WITHOUT CONTRAST, 07/26/2016, 16:24. [facility], CR, XR CERVICAL SPINE 4V OR 5V, 03/08/2024, 8:59. [facility], MR, MR CERVICAL SPINE WO CON, 02/27/2018, 12:34. FINDINGS: Image quality: There is artifact associated with the metallic hardware. This examination is limited by involuntary motion artifact. Alignment and Curvature: There is overall straightening of the normal cervical lordosis. No focal AP alignment abnormality is seen. Bone Marrow: Marrow demonstrates normal overall signal. Spinal Cord: Visualized spinal cord has normal size and signal. No cerebellar tonsillar herniation. Paraspinous Soft Tissues: No paravertebral masses. Prevertebral soft tissues are normal in thickness. C2-C3: Mild loss of disc height is seen. Loss of disc signal is seen. A mild degree of generalized disc osteophyte complex is seen. There is at least moderate right-sided and zaiw-gc-vcasbbaj left-sided facet hypertrophy. Moderate bilateral neural foraminal narrowing is seen. No central canal narrowing is seen. These imaging findings have progressed compared to the prior study. C3-C4: Mild loss of disc height is seen. Loss of disc signal is seen. Moderate generalized disc osteophyte complex is seen. There is at least moderate facet hypertrophy, left worse than right. There is moderate to severe bilateral neural foraminal narrowing, left worse than right. Mild central canal narrowing is seen. These imaging findings have progressed compared to the prior study. C4-C5: Moderate loss of disc height is seen. Loss of disc signal is seen. Moderate disc osteophyte complex is seen, which is slightly eccentric to the left. At least moderate facet hypertrophy can be seen. There is moderate to severe bilateral neural foraminal narrowing, left worse than right. Mild central canal narrowing is seen. There is associated mass effect upon the ventral spinal cord. When comparison is made with the prior images, these findings are similar. C5-C6: Postoperative change is seen at this level, with an artificial disc. Moderate generalized disc osteophyte complex is seen. Is moderate to severe facet hypertrophy is seen. There is moderate to severe bilateral neural foraminal narrowing. Mild central canal narrowing is seen. The degree of central canal narrowing is improved compared to the prior. C6-C7: Postoperative change is seen at this level, with an artificial disc. A mild degree of generalized disc osteophyte complex is seen. There is moderate right-sided and at least moderate left-sided facet hypertrophy. There is mild right-sided and moderate left-sided neural foraminal narrowing. Minimal central canal narrowing is seen. Degenerative changes are improved compared to the prior. C7-T1: Mild loss of disc height is seen. Loss of disc signal is seen. Mild to moderate disc osteophyte complex is seen, which is eccentric to the left. Moderate facet joint hypertrophy is seen. Mild to moderate bilateral neural foraminal narrowing can be seen. No significant central canal narrowing can be seen. The degrees of neural foraminal narrowing is slightly worse than on the prior examination. IMPRESSION: Postoperative change at C5-C6 and C6-C7, with improvement at these levels compared to the preoperative MRI. Elsewhere, multiple levels of degenerative change have progressed compared to 2018. Dictated by: Norberto Lakhani M.D. on 03/19/2024 at 18:01 Approved by: Norberto Lakhani M.D. on 03/19/2024 at 18:06
== END ==
LOC: MRI 16:26
PROVIDERS: PCP Internal Medicine; Referring Provider Physical Medicine & Rehabilitation; Visit Provider Physical Medicine & Rehabilitation
DX: M50.022 Cervical disc disorder at C5-C6 level with myelopathy; M47.812 Spondylosis without myelopathy or radiculopathy, cervical region; M48.02 Spinal stenosis, cervical region
CPT/HCPCS: 72141

== ENCOUNTER 2024-04-08 07:31 | Outpatient (CLI) | payer OTHER, SELFPAY ==
[2022-11-19 17:15] VITALS: BMI 30.9
[2024-04-08] VITALS (8 sets, daily range): BP systolic 128–143; BP diastolic 64–90; PULSE 72–84; RESP 14–22; TEMP 37; O2SAT 94–100
--- NOTE | 2024-04-08 07:33 | DI.RAD.S_ITS ---
PROCEDURE: PAIN L INTERLAMINAR/CAUDAL INJ INDICATIONS: L4/5 TL NEIL COMPARISON: None. FINDINGS/IMPRESSION: Fluoroscopic spot filming was performed to verify placement of spinal needles at the L4-L5 level(s), as labeled on the films. Appropriate location(s) of the needle tip(s) was confirmed by injection of iodinated contrast. Dictated by: Douglas Drummond M.D. on 04/09/2024 at 10:30 Approved by: Douglas Drummond M.D. on 04/09/2024 at 10:30
[2024-04-08] MEDS: MIDAZOLAM 2 MG/2 ML VIAL IV (08:31)
[2024-04-08] MEDS: iopamidoL 15 ML VIAL 3 ML INJ (08:41)
[2024-04-08] MEDS: BUPIVACAINE 0.25% (PF) VIAL 2 ML INJ (08:41)
[2024-04-08] MEDS: DEXAMETHASONE 10 MG/ML VIAL INJ (08:41)
[2024-04-08] MEDS: BETAMETHASONE 30 MG/5 ML MDV 12 MG INJ (08:42)
--- NOTE | 2024-04-08 08:59 | P.PCN_ITS ---
Date/Time/Diagnoses Date of procedure: 04/08/24 Time of procedure: 09:00 Pre-procedure diagnosis: 1. HNP WITH RADICULAR FEATURES, 2. MULTILEVEL CENTRAL STENOSIS, Post-procedure diagnosis: same Procedure Notes Procedure: 1. FLUOROSCOPICALLY GUIDED CONTRAST CONTROLLED INTERLAMINAR EPIDURAL STEROID INJECTION -L4/5 Indications: Reaann is referred by SAY Shea for treatment of Bilateral Foraminal Stenosis R>L LE symptoms. Physician: Hebert Foley Total Fluoroscopy time (seconds): 8 Total sedation minutes: 16 Complications: none Procedure in detail & Post-procedure care: FINDINGS Multilevel Central Spinal Stenosis with Nerve Root Compression DESCRIPTION OF PROCEDURE Fluoroscopically guided, contrast-controlled L4/5 translaminar epidural steroid injection. Following review of allergy and review of potential side effects and complications, including, but not necessarily limited to, infection, allergic reaction, local tissue breakdown, temporary as well as permanent nerve injury, paralysis, stroke and possible , the patient indicated that the patient understood and agreed to proceed. An informed consent document was signed by the patient, witnessed by a nurse, and placed in the patient's chart. Additionally, other treatment options including modalities, medications, and physical therapy were reviewed with the patient. After review of previous anaesthesic history and IV conscious sedation the patient was deemed safe to proceed with today?s procedure with IV conscious sedation as ASA class II designation. Safety time-out was performed to confirm patient ID, procedure to be performed and site of procedure. IV sedation was accomplished with a combination of 2mg of Versed was administered by the RN after DO order, titrated to patient comfort during the course of the procedure while the patient remained responsive to all verbal commands In the prone position, following sterile prep and drape of the lumbar region, the L4/5 translaminar space was identified fluoroscopically. The skin was anesthetized via a 25-gauge, 1.5inch needle with 1% lidocaine solution. At this point, a 22-gauge short bevel spinal needle was atraumatically introduced and advanced under fluoroscopic guidance into the region of the L4/5 translaminar space. Depth was confirmed on lateral view. Radiological data, including multiple fluoroscopic views of the lumbar spine, reveal a spinal needle at the L4/5 translaminar space. Lateral views then show placement of the needle in the epidural space. Subsequent views show contrast material flowing superiorly and inferiorly in the epidural space. No vascular or intrathecal uptake is observed. At this point, using loss of resistance technique with saline and air, the epidural space was entered. This was confirmed following negative aspiration with injection of approximately 1.5cc of Isovue 200, showing excellent epidural flow without vascular or intrathecal uptake. At this point, 1cc of 1% lidocaine solution combined with 2cc or 10mg of dexamethasone and 6mg betamethasone was injected without incident. The patient tolerated the procedure well without signs or symptoms of complications prior to transfer to the recovery area continued monitoring without incident. The patient was then transferred to the recovery area where they were observed for an appropriate period of time after the injection. The patient reported a VAS score of 9 prior to the procedure and a post- procedure VAS of 1. POST OP INSTRUCTIONS The patient was provided a Pain Log to continue to record their response to the target-specific procedure prior to follow-up visit with their referring physician. Additionally, specific post-injection care instructions and a contact number to our office were provided if concerns arise regarding possible complications associated with the procedure are suspected.
== END 2024-04-08 09:06 | disposition home or self-care (01) ==
PROVIDERS: PCP Internal Medicine; Referring Provider Physical Medicine & Rehabilitation; Visit Provider Physical Medicine & Rehabilitation
DX: M51.16 Intervertebral disc disorders with radiculopathy, lumbar region (principal); M48.061 Spinal stenosis, lumbar region without neurogenic claudication
CPT/HCPCS: 62323; 99152; J0702; J1100; J2250; J3490

== ENCOUNTER 2024-09-09 08:45 | Outpatient (CLI) | payer OTHER, SELFPAY ==
[2024-08-30 10:19] VITALS: BMI 30.9
[2024-09-09] VITALS (9 sets, daily range): BP systolic 121–159; BP diastolic 60–108; PULSE 64–73; RESP 13–19; TEMP 36.6; O2SAT 97–100
[2024-09-09] MEDS: MIDAZOLAM 2 MG/2 ML VIAL IV ×2 (09:48→09:54)
[2024-09-09] MEDS: DEXAMETHASONE 10 MG/ML VIAL 30 MG INJ (09:57)
[2024-09-09] MEDS: BUPIVACAINE 0.25% (PF) VIAL 2 ML INJ (09:57)
[2024-09-09] MEDS: iopamidoL 15 ML VIAL 3 ML INJ (09:58)
--- NOTE | 2024-09-09 10:11 | P.PCN_ITS ---
Date/Time/Diagnoses Date of procedure: 09/09/24 Time of procedure: 10:12 Pre-procedure diagnosis: 1. CERVICAL STENOSIS, 2. CERVICAL HNP WITH UPPER EXTREMITY RADICULAR FEATURES Procedure Notes Procedure: FLUORSCOPICALLY GUIDED CONTRAST CONTROLLED INTERLAMINAR EPIDURAL STEROID INJECTION - C7/T1 TL NEIL Indications: Raeann is referred by SAY Masterson for treatment of Cervical Stenosis. Physician: Hebert Foley Total Fluoroscopy time (seconds): 30 Total sedation minutes: 17 Complications: none Procedure in detail & Post-procedure care: DESCRIPTION OF PROCEDURE Following review of allergy and review of potential side effects and c omplications, including, but not necessarily limited to, infection, allergic reaction, local tissue breakdown, temporary as well as permanent nerve injury, stroke, paralysis, and possible , the patient indicated that patient understood and agreed to proceed. An informed consent document was signed by the patient, witnessed by a nurse, and placed in the patient's chart. Additionally, other treatment options including modalities, medications, and physical therapy were reviewed with the patient. After review of previous anaesthesic history and IV conscious sedation the patient was deemed safe to proceed with todays procedure with IV conscious sedation as ASA class II designation. Safety time-out was performed to confirm patient ID, procedure to be performed and site of procedure. IV sedation was accomplished with a combination of 4mg of Versed administered by the RN after DO order, titrated to patient comfort during the course of the procedure while the patient remained responsive to all verbal commands. In the prone position, following sterile prep and drape of the cervical region, the C7/T1 translaminar space was identified fluoroscopically. The skin was anesthetized via a 25-gauge 1.5-inch needle with 1% lidocaine solution. At this point, a 25-gauge, 2.5-inch short bevel spinal needle was atraumatically introduced and advanced under fluoroscopic guidance into epidural space at the C7/T1 translaminar space. Depth was confirmed on lateral view. Radiological data, including multiple fluoroscopic views of the cervical spine, reveal a spinal needle at the C7/T1 translaminar space. Lateral views then show placement of the needle in the epidural space. Subsequent views show contrast material flowing superiorly and inferiorly in the epidural space. DSA fluorosc opy with live contrast injection, once again, confirmed no vascular or intrathecal uptake. At this point, using loss of resistance technique with saline and air, the epidural space was entered. Following negative aspiration, injection of approximately 1.5 cc of Isovue-200 with live fluoroscopy in the AP view confirmed epidural flow in the epidural space without vascular or intrathecal uptake observed. Subsequently, a test dose of 1 cc of 1% lidocaine solution was injected and patient was observed for two minutes without signs or symptoms of complications, including abdominal pain, shortness of breath, bilateral upper or lower extremity weakness, nausea and vomiting, prior to steroid injection. At this point, 3cc or 30mg of dexamethasone was then injected without incident. The patient tolerated the procedure well without signs or symptoms of complications prior to transfer to the recovery area for further monitoring The patient was then transferred to the recovery area where they were observed for an appropriate period of time after the injection. The patient reported a VAS score of 6 prior to the procedure and a post-procedure VAS of 0 POST OP INSTRUCTIONS The patient was provided a Pain Log to continue to record the patient's response to the target-specific procedure prior to the patient's follow-up visit with the referring physician. Additionally, specific post-injection care instructions and a contact number to our office were provided if concerns arise regarding possible complications associated with the procedure are suspected.
== END 2024-09-09 10:30 | disposition home or self-care (01) ==
PROVIDERS: PCP Registered Nurse; Referring Provider Physical Medicine & Rehabilitation; Visit Provider Physical Medicine & Rehabilitation
DX: M48.02 Spinal stenosis, cervical region (principal); M50.13 Cervical disc disorder with radiculopathy, cervicothoracic region
CPT/HCPCS: 62321; 99152; J1100; J2250

== ENCOUNTER → 2024-09-13 16:09 | Outpatient (CLI) | payer OTHER, SELFPAY ==
[2024-08-30 10:19] VITALS: BMI 30.9
[2024-09-13 17:04] LABS: Lithium 0.7 mmol/L (0.6-1.2)
[2024-09-13 17:06] LABS: Alanine Aminotransferase 21 IU/L (<35); Albumin 4.4 g/dL (3.5-5.0); Albumin Globulin Ratio 1.6 (1.0-2.8); Alkaline Phosphatase 67 U/L (38-126); Aspartate Aminotransferase 22 IU/L (14-36); BUN Creatinine Ratio 24.7 (6-22); Bilirubin Total 0.6 mg/dL (0.2-1.3); Blood Urea Nitrogen 21 mg/dL (7-17); Calcium 9.6 mg/dL (8.4-10.2); Carbon Dioxide 25 mmol/L (22-32); Chloride 105 mmol/L (98-107); Estimated Glomerular Filt Rate > 60 mL/min (>60); Globulin 2.7 g/dL (1.7-4.1); Glucose 103 mg/dL (70-99); HEMOLYSIS < 15 (0-50); Potassium 4.6 mmol/L (3.4-5.1); Sodium 138 mmol/L (137-145); Total Protein 7.1 g/dL (6.3-8.2)
[2024-09-13 17:22] LABS: Follicle Stimulating Hormone 70.9 mIU/mL; Prolactin 16.3 ng/mL (3.0-18.6)
[2024-09-13 17:38] LABS: Estradiol, Total 24.6 pg/mL; Testosterone 45.6 ng/dL (5.71-77.0)
[2024-09-13 18:01] LABS: Free T4, Direct Thyroxine 1.14 ng/dL (0.78-2.19)
== END ==
PROVIDERS: PCP Registered Nurse; Referring Provider Registered Nurse; Visit Provider Registered Nurse
DX: F31.9 Bipolar disorder, unspecified (principal); Z78.0 Asymptomatic menopausal state
CPT/HCPCS: 36415; 80053; 80178; 82670; 83001; 84146; 84403; 84439; 84443

== ENCOUNTER → 2024-10-29 07:50 | Outpatient (CLI) | payer OTHER, SELFPAY ==
[2024-08-30 10:19] VITALS: BMI 30.9
--- NOTE | 2024-10-29 07:51 | DI.MRI.S_ITS ---
PROCEDURE: MR FOOT RT WO CON INDICATIONS: pain TECHNIQUE: Multiphasic, multisequence MRI of the forefoot was performed, without intravenous contrast administration. COMPARISON: [facility] [place], CR, XR TOE(S) RIGHT, 10/14/2024, 15:09. FINDINGS: Image quality: Excellent. Bones and joints: There is osseous edema and [id number] signal surrounding the 1st metatarsophalangeal joint. The distal articular surface of the 1st metatarsal head appears irregular with loss of cortical right definition suspicious for osseous erosions. Mild scattered degenerative changes at the midfoot with mild subchondral edema. Degenerative changes are seen at the interphalangeal joints of the toes Soft tissues: Small 1st metatarsophalangeal joint effusion. Mild flexor hallucis longus tenosynovitis. The remaining visualized flexor and extensor tendons appear intact. Mild fatty infiltration of the foot musculature is compatible mild chronic denervation changes. Trace adventitial bursal effusion plantar to the 5th metatarsal head. The distal insertions of the peroneus brevis and longus tendons appear intact. The principal Lisfranc ligament appears intact. IMPRESSION: Osseous edema and decreased T1-weighted signal surrounding the 1st metatarsophalangeal joint with loss of cortical definition suspicious for osseous erosions. Findings are suspicious for a nonspecific infectious or inflammatory process including septic arthritis or a nonspecific inflammatory arthritis. Recommend correlation with clinical findings and serologies. If septic arthritis is suspected clinically, then urgent joint aspiration is recommended. Approved by: Chris Hou M.D. on 10/30/2024 at 15:46
== END ==
LOC: MRI 07:51
PROVIDERS: PCP Registered Nurse; Referring Provider Podiatrist; Visit Provider Podiatrist
DX: M79.674 Pain in right toe(s) (principal); M25.474 Effusion, right foot
CPT/HCPCS: 73718